=== PATIENT | male | born 1950 | race Caucasian/White ===

== ENCOUNTER → 2016-08-12 | Day surgery (SDC) | payer BC ==
--- NOTE | 2016-08-06 19:33 | HP ---
ADMISSION HISTORY AND PHYSICAL: DATE OF ADMISSION: 08/12/16 CHIEF COMPLAINT: Recurrent right inguinal hernia. HISTORY OF PRESENT ILLNESS: This is a 66-year-old male who underwent open right inguinal hernia repair with Ethicon PHS mesh in 2010. He seemed to do okay for the first few years but in the last year or so, he has had gradual development of a recurrent bulge in the right groin and particularly in the last month or two, has experienced discomfort and pain on an increasing basis. He did have one episode while shopping with pain severe enough to require him to sit down and apply manual pressure. At no time has he had anything to suggest true incarceration or strangulation. He denies any specific GI or changes. He does occasionally note a general "belly ache" that seemed to be associated with presence of the bulge. He was seen in the office by Dr. Cheng on 07/14/16, at which time exam confirmed the presence of a well-healed scar in the right groin as well as reducible right inguinal hernia. On today's exam, I also found a positive cough impulse in the supine position on the left side and this was confirmed by Dr. Cheng as well. The patient understands the indications for surgery, the risks, benefits, and alternatives and would like to proceed as scheduled with laparoscopic repair or right inguinal hernia with mesh. He also understands that Dr. Cheng will explore the left side and if indeed there is hernia present, he will do repair on the left side with mesh as well at that time. PAST MEDICAL HISTORY: 1. BPH. 2. GERD. 3. Gout. PREVIOUS SURGERIES: Include: 1. Right inguinal herniorrhaphy as noted above. 2. Open repair, umbilical hernia, by Dr. Rosen many years ago (he believes that that was done as a primary repair). 3. 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 No reported surgical or anesthesia complications. CURRENT MEDICATIONS: 1. Omeprazole 20 mg once daily. 2. Allopurinol 100 mg once daily. 3. Finasteride 5 mg once daily. 4. Tamsulosin 0.4 mg once daily. 5. Multivitamin once daily. 6. Fiber laxative once daily. 7. Ibuprofen p.r.n. DRUG ALLERGIES: None known. FAMILY HISTORY: Negative for anesthesia problems, bleeding or clotting disorders. SOCIAL HISTORY: The patient is . 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 He denies use of tobacco. He drinks on average 2 to 3 beers per day. He denies any other drug use. REVIEW OF SYSTEMS: General: No recent constitutional symptoms or acute illnesses other than described in the HPI. Cardiovascular: No history of chest pain, palpitations, hypertension or heart murmur. Respiratory: No history of asthma, chronic cough, or shortness of breath. GI: As above. He did have 2 episodes requiring hospitalization for acute pancreatitis in 2015. That was idiopathic and he has had no recurrences. His last colonoscopy was about 15 years ago and he has been recommended to undergo screening, though has had no concerning interval symptoms. : He is followed regularly by Dr. Abdul for BPH. No interval changes in urination. Endocrine: No diabetes or thyroid dysfunction. 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 PHYSICAL EXAMINATION GENERAL: Well-nourished, well-developed male in no acute distress. VITAL SIGNS: Height 72 inches, weight 202 pounds. Other vital signs stable. HEENT: Pupils equal, round, and reactive. EOMs intact. Conjunctivae pink. He does have somewhat of a "crooked smile" presumably related to his prior Patton' s palsy (he does not note any recent changes). NECK: No lymphadenopathy or thyromegaly. There is a well-healed left neck incision. LUNGS: Clear to auscultation. No wheezes. HEART: Regular rate and rhythm. No murmur noted. ABDOMEN: Soft, nontender to palpation. No palpable masses or organomegaly with the exception of right groin where there is a somewhat tender, but reducible mass in the right groin while in the supine position. Left groin is notable for positive cough impulse, which was also confirmed by Dr. Cheng in the standing position, possibly representing a left inguinal hernia as well. EXTREMITIES: No edema. GENITALIA AND RECTAL: Not done today. BACK: No spinous process or CVA tenderness. NEUROLOGICAL: Grossly intact. SKIN: Warm and dry. No suspicious rashes or lesions noted. IMPRESSION: Recurrent right inguinal hernia; possible left inguinal hernia. PLAN: Laparoscopic repair of right inguinal hernia with mesh; possible repair of left inguinal hernia with mesh. SAMIA CALHOUN CC: Dr. Rascon at [facility]* [id number]/[facility] #: [id number] [facility]
[~2016-08-12] MED LIST: Buffered Lidocaine 1% SYR 3ML* 3 ML/SYR SYRINGE INTRADERM ONE; Buffered Lidocaine 1% SYR 3ML* 3 ML/SYR SYRINGE ONE; Bupivacaine 0.5% W/EPI SDV* 30 ML VIAL ONE; Dexamethasone IV* 4 MG/ML 1 ML (4 MG) IV SLOW PU ONE; Dexamethasone IV* 4 MG/ML 1 ML (4 MG) ONE; EPHEDrine (Pressors)* 50 MG/ML VIAL ONE; Famotidine IV* 10 MG/ML 2 ML (20 mg) IV ONE; Famotidine IV* 10 MG/ML 2 ML (20 mg) ONE; Ketorolac INJ* 30 MG/ML 1 ML VIAL ONE; Lidocaine 2% MPF* 2 ML VIAL ONE; Ondansetron INJ* 2 MG/ML VIAL ONE; PROCHLORPERAZINE INJ 5 MG/ML 2 ML VIAL IV PRN; Propofol* 10 MG/ML 20 ML BTL IV PUSH ONE; Rocuronium* 10 MG/ML VIAL ONE; ceFAZolin 2 GM PREMIX (*) 0 GM/0 ML BAG IVPB ONE; ceFAZolin 2 GM PREMIX (*) 2 GM/50 ML BAG IVPB ONE; fentaNYL* 50 MCG/ML 2 ML VIAL (100 MCG VIAL) IV PRN; fentaNYL* 50 MCG/ML 2 ML VIAL (100 MCG VIAL) ONE; oxyCODONE/Acetamin 5/325 MG* TAB ONE
--- NOTE | 2016-08-12 18:26 | PN ---
Progress Note - Progress Note Note: Brief Operative Note: Preop Dx: Recurrent Right Inguinal Hernia; possible Left Inguinal Hernia Postop Dx: same Procedure: Laparoscopic Repair Bilateral Inguinal Hernias w/ mesh Anesthesia: GET Surgeon: Skylar Asst: SAMIA Robles EBL: < 100 ml Fluids: 2500 ml RL Findings: dictated
[2016-08-12] MEDS: oxyCODONE/Acetamin 5/325 MG* TAB PO PRN ×2 (19:09→20:40)
[2016-08-12 21:15] VITALS: BP 168/93
--- NOTE | 2016-08-13 02:52 | OP ---
DATE OF OPERATION: 08/12/16 [facility] DATE OF : 52 SURGEON: Dr. Cheng. TOBACCO STRIPPER HAND: SAMIA Senior ANESTHESIOLOGIST: Dr. Johnson. ANESTHESIA: General endotracheal. PRE-OP DIAGNOSES: Recurrent right inguinal hernia, possible left inguinal hernia. POST-OP DIAGNOSIS: Bilateral inguinal hernias. OPERATIVE PROCEDURES: Laparoscopic preperitoneal repair of recurrent right inguinal hernia and left inguinal hernia, peritoneoscopy. ESTIMATED BLOOD LOSS: Less than 10 mL. IV FLUIDS: Crystalloid. SPECIMEN: None. DRAINS: None. COMPLICATIONS: None. COUNTS: The instruments, needle, and sponge counts were correct. DESCRIPTION OF PROCEDURE: The patient was brought to the operating room and placed on the table supine. Sequential compression devices were placed on both lower extremities. General anesthesia was administered. Lord catheter was placed. The patient was administered appropriate antibiotics. His abdomen was prepped and draped in the usual sterile fashion. Time-out was performed. Local anesthetic was infiltrated into the skin and soft tissue prior to making each incision. A transverse infraumbilical incision was created and subcutaneous tissues were divided. Anterior rectus fascia was identified to the left of midline and incised transversely and then the underlying muscle fibers were retracted laterally. A preperitoneal balloon dissector was positioned down to the level of the pubic symphysis. Under direct visualization , this was insufflated. The balloon dissector was removed and replaced with a 12-mm blunt port. Carbon dioxide was insufflated to a pressure of 12 mmHg. Under direct visualization, two 5 mm trocars were placed in the lower midline. Dissection proceeded first towards the left side. The Thomas's ligament was identified. Inferior epigastric vessels were identified, maintained anteriorly. A direct inguinal hernia was identified. Dissection proceeded laterally and the components of the spermatic cord were identified and preserved. The dissection proceeded laterally to the anterior superior iliac spine. Attention was then turned to the right side of the patient. Starting at the midline, the dissection proceeded laterally. There was noted to be a preperitoneal mesh within the preperitoneal space and this was adherent to the surrounding tissues and was dissected free using combination of blunt and sharp dissection. Epigastric fascias were identified and preserved. A large indirect inguinal hernia sac was identified and fully reduced. There were numerous rents made in the peritoneum, which were subsequently closed with clips. After the mesh was fully reduced, the dissection proceeded laterally to the anterior superior iliac spine. After completing the dissection, repair was performed with the bard 3D Max mesh. This was positioned to cover the direct, indirect, and femoral spaces. The mesh was secured with an anterior tack, also incorporating the redundant sac to the anterior abdominal musculature and a tack to the pubic tubercle. The left-sided mesh was then positioned and this was also tacked to the pubic tubercle on the left side. The space was allowed to be insufflated under direct visualization to assure that the mesh was in proper position. Due to the presence of intraperitoneal carbon dioxide, it was elected to perform peritoneoscopy through the 12 mm port side. After the port was removed , the posterior rectus fascia was incised and the peritoneal cavity was entered and a 12 mm port was placed. Carbon dioxide was insufflated to 12 mmHg. Peritoneoscopy was performed. Right side was inspected and the peritoneum was noted to be intact. Left side was inspected and the peritoneum was noted to be intact. Having assured proper position of the mesh, the carbon dioxide was released and ports were removed. The infraumbilical port site was closed with 0 Polysorb approximating the posterior and anterior rectus fascia separately. Skin incisions were all closed with 4-0 Monocryl in a subcuticular fashion. The Steri-Strips were applied. The patient tolerated the procedure well. He was extubated and transferred to Recovery in a stable condition. CC: Terry Rascon MD* [id number]/[facility] #: [id number] LEN
== END | disposition home or self-care (01) ==
LOC: OR 13:27
PROVIDERS: ATTEND Surgery
DX: K40.20 Bilateral inguinal hernia, without obstruction or gangrene, not specified as recurrent (principal)
CPT/HCPCS: A9270-GY; C1776; C1781; J0690; J1100; J1885; J2405; J2704; J3010

== ENCOUNTER 2018-03-02 14:03 | Inpatient (IN) | payer MEDICARE, OTHER ==
[2018-03-02] MEDS ORDERED: Ondansetron INJ* 2 MG/ML VIAL IV ONE ×2 (14:23→17:29)
[2018-03-02] MEDS ORDERED: Morphine VIAL* 4 MG/ML VIAL (1 ml vial) IV ONE ×2 (14:23→17:29)
[2018-03-02] MEDS ORDERED: Morphine INJ* 2 MG/ML 1 ML SYRINGE (TWO MG - NEW SYRINGE VERSION) ONE (14:57)
[2018-03-02 15:16] LABS: EGFR Non-African American 73.9 (>60)
[2018-03-02] MEDS: Morphine INJ* 2 MG/ML 1 ML SYRINGE (TWO MG - NEW SYRINGE VERSION) IV ONE ×2 (15:21→18:36)
[2018-03-02] MEDS ORDERED: NS 0.9% 1000 ML* 1,000 ML IV ONE ×2 (15:21→16:07)
[2018-03-02 15:36] LABS: Urine Appearance Clear; Urine Blood 1+ (Negative); Urine Color Yellow; Urine Ketones Negative (Negative); Urine Protein Negative (Negative); Urine Red Blood Cell 2+(6-10/hpf) (Absent); Urine Specific Gravity 1.012 (1.010-1.030); Urine Urobilinogen Negative (Negative); Urine White Blood Cell Trace(0-5/hpf) (Absent)
--- NOTE | 2018-03-02 15:45 | ED ---
Abdominal Pain/Male - HPI Summary HPI Summary: Patient is a 67-year-old male with history of alcohol-induced pancreatitis 3 years ago presenting to the ED with worsening mid upper abdominal pain over the past several days with worsening symptoms. He endorses worsening pain after eating, better with rest. He continues to drink several beers per night but has decreased the amount over the past several days and endorses 2 beers last evening. 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 Also endorses back pain which is mid to lower back and began approximately one week ago. He states similar episode happened last time he was diagnosed with pancreatitis with the back pain prior to the abdominal pain. Denies any other abdominal pain , urinary symptoms, back pain, shortness of breath, chest pain. Denies any fevers, sweats, chills. He was being treated by doctor Ritika, but states with further testing they found no evidence of any other abnormalities other than an elevated lipase and amylase with one episode acute pancreatitis. He states he has been otherwise healthy, however has an enlarged prostate. - History of Current Complaint Chief Complaint: EDAbdPain Stated Complaint: ABD PAIN Time Seen by Provider: 03/02/18 14:18 Hx Obtained From: Patient Onset/Duration: Sudden Onset Timing: Constant, Lasting Days Severity Initially: Moderate Severity Currently: Moderate Pain Intensity: 7 Pain Scale Used: 0-10 Numeric Location: Epigastric Radiates: Yes Radiates to: Back Aggravating Factor(s): Food Alleviating Factor(s): Nothing Associated Signs And Symptoms: Positive: Back Pain, Nausea, Vomiting. Negative : Fever, Cough, Constipation, Urinary Symptoms, Decreased Appetite - Risk Factors Testicular Torsion: Negative Cardiac Risk Factors: Negative - Allergies/Home Medications Allergies/Adverse Reactions: Allergies Allergy/AdvReac Type Severity Reaction Status Date / Time 1.5T MRIs ONLY Allergy FOREIGN Uncoded 08/12/16 13:49 METAL IN Lt CHEEK Home Medications: Home Medications Allopurinol TAB* [Zyloprim 100 MG TAB*] 100 mg PO QPM 03/02/18 [History Confirmed 03/02/18] Calcium Polycarbophil TAB* [Fibercon TAB*] 625 mg PO DAILY 03/02/18 [History Confirmed 03/02/18] Finasteride TAB* [Proscar TAB*] 5 mg PO DAILY 03/02/18 [History Confirmed ] Ibuprofen TAB* [Motrin TAB* 400 MG] 400 mg PO Q6H PRN 03/02/18 [History Confirmed 03/02/18] Multivitamins/Minerals TAB* [Theragran/minerals TAB*] 1 tab PO DAILY 03/02/18 [ History Confirmed 03/02/18] Omeprazole CAP* [Prilosec CAP* 20 MG] 20 mg PO DAILY 03/02/18 [History Confirmed 03/02/18] PMH/Surg Hx/FS Hx/Imm Hx Previously Healthy: Yes Endocrine/Hematology History: Denies: Hx Diabetes, Hx Thyroid Disease Cardiovascular History: Reports: Hx Hypercholesterolemia, Hx Syncope Denies: Hx Hypertension, Hx Pacemaker/ICD Respiratory History: Denies: Hx Asthma, Hx Chronic Obstructive Pulmonary Disease (COPD) GI History: Reports: Hx Diverticulosis - Md diagnosed via [place], Hx Gastroesophageal Reflux Disease - ON MEDICATION FOR, Other GI Disorders - 2 YRS AGO- PACREATITIS Denies: Hx Ulcer History: Reports: Hx Benign Prostatic Hyperplasia, Other Problems/ Disorders - slow stream Musculoskeletal History: Reports: Hx Arthritis - HANDS, Hx Back Problems, Hx Gout - HX not current, Hx Orthopedic Injury - severed right tricep, surgically reattached Sensory History: Reports: Hx Contacts or Glasses - GLASSES, Hx Vision Problem - wears bifocals, Hx Hearing Problem - [place] Left ear Denies: Hx Hearing Aid Opthamlomology History: Reports: Hx Contacts or Glasses - GLASSES, Hx Vision Problem - wears bifocals Neurological History: Denies: Hx Dementia, Hx Developmental Delay, Hx Headaches, Hx Migraine, Hx Nerve Disease, Hx Seizures, Hx Spinal Cord Injury, Hx Transient Ischemic Attacks (TIA), Other Neuro Impairments/Disorders Psychiatric History: Denies: Hx Panic Disorder - Surgical History Surgery Procedure, Year, and Place: BENIGN SALIVARY TUMOR UNDER LEFT EAR, right ELBOW - TRICEP TENDON TEAR,2 HERNIAS,TONSILECTOMY,HERNIA REPAIR SMALL CHILD Hx Anesthesia Reactions: No - Immunization History Hx Pertussis Vaccination: No Immunizations Up to Date: Unable to Obtain/Confirm Infectious Disease History: No Infectious Disease History: Denies: Hx Clostridium Difficile, Hx Hepatitis, Hx Human Immunodeficiency Virus (HIV), Hx of Known/Suspected MRSA, Hx Shingles, Hx Tuberculosis, Hx Known/ Suspected VRE, Hx Known/Suspected VRSA, History Other Infectious Disease, Traveled Outside the [place] in Last 30 Days - Social History Occupation: Unemployed Lives: With Family Alcohol Use: Daily Alcohol Amount: 1 or 2 beer day Hx Substance Use: No Substance Use Type: Reports: None Substance Use Comment - Amount & Last Used: within the last week or two Hx Tobacco Use: No Smoking Status (MU): Never Smoked Tobacco Review of Systems Constitutional: Negative Negative: Fever, Chills, Fatigue, Skin Diaphoresis Negative: Palpitations, Chest Pain Negative: Shortness Of Breath, Cough Positive: Abdominal Pain, Vomiting, Nausea. Negative: Diarrhea Genitourinary: Negative Positive: no symptoms reported, see HPI Negative: Arthralgia, Myalgia Skin: Negative Neurological: Negative All Other Systems Reviewed And Are Negative: Yes Physical Exam Triage Information Reviewed: Yes Vital Signs On Initial Exam: Initial Vitals Temp Pulse Resp BP Pulse Ox 97.8 F 68 18 80/47 98 03/02/18 14:05 03/02/18 14:05 03/02/18 14:05 03/02/18 14:05 03/02/18 14:05 Vital Signs Reviewed: Yes Appearance: Positive: Well-Appearing, Well-Nourished Skin: Positive: Warm, Skin Color Reflects Adequate Perfusion Head/Face: Positive: Normal Head/Face Inspection Eyes: Positive: EOMI, DORIS, Conjunctiva Clear Neck: Positive: Supple, No Lymphadenopathy Respiratory/Lung Sounds: Positive: Clear to Auscultation, Breath Sounds Present Cardiovascular: Positive: RRR, Pulses are Symmetrical in both Upper and Lower Extremities Abdomen Description: Positive: Other: - tenderness to the mid epigastric region and mid back Musculoskeletal: Positive: Normal, Strength/ROM Intact Neurological: Positive: Normal, Sensory/Motor Intact, Alert, Oriented to Person Place, Time, Speech Normal Psychiatric: Positive: Normal, Affect/Mood Appropriate AVPU Assessment: Alert Diagnostics - Vital Signs Vital Signs Temp Pulse Resp BP Pulse Ox 03/02/18 15:21 14 03/02/18 14:47 67 95 03/02/18 14:44 124/69 03/02/18 14:05 97.8 F 68 18 80/47 98 - Laboratory Lab Results: Lab Results 03/02/18 03/02/18 Range/Units 14:40 15:16 Sodium 137 (135-145) mmol/L Potassium 3.5 (3.5-5.0) mmol/L Chloride 102 (101-111) mmol/L Carbon Dioxide 26 (22-32) mmol/L Anion Gap 9 (2-11) mmol/L BUN 16 (6-24) mg/dL Creatinine 1.01 (0.67-1.17) mg/dL Est GFR ( Amer) 89.4 (>60) Est GFR (Non-Af Amer) 73.9 (>60) BUN/Creatinine Ratio 15.8 (8-20) Glucose 117 H (70-100) mg/dL Calcium 9.4 (8.6-10.3) mg/dL Total Bilirubin 1.10 H (0.2-1.0) mg/dL AST 51 H (13-39) U/L ALT 30 (7-52) U/L Alkaline Phosphatase 63 (34-104) U/L C-Reactive Protein 1.23 (<8.01) mg/L Total Protein 7.1 (6.4-8.9) g/dL Albumin 4.3 (3.2-5.2) g/dL Globulin 2.8 (2-4) g/dL Albumin/Globulin Ratio 1.5 (1-3) Amylase 1702 H (29-103) U/L Lipase Pending Urine Color Yellow Urine Appearance Clear Urine pH 6.0 (5-9) Ur Specific [place] 1.012 (1.010-1.030) Urine Protein Negative (Negative) Urine Ketones Negative (Negative) Urine Blood 1+ A (Negative) Urine Nitrate Negative (Negative) Urine Bilirubin Negative (Negative) Urine Urobilinogen Negative (Negative) Ur Leukocyte Esterase Negative (Negative) Urine WBC (Auto) Trace(0-5/hpf) (Absent) Urine RBC (Auto) 2+(6-10/hpf) A (Absent) Urine Bacteria Absent (Absent) Urine Glucose Negative (Negative) Result Diagrams: 03/02/18 14:40 03/02/18 14:40 Lab Statement: Any lab studies that have been ordered have been reviewed, and results considered in the medical decision making process. Re-Evaluation - Re-Evaluation First Eval Change: Improved - improved with NS, morphine and zofran Abdominal Pain Fem Course/Dx - Course Course Of Treatment: During the course of treatment, the patient is evaluated for acute pancreatitis versus other etiology. On physical exam there is diffuse tenderness to the upper abdomen with pinpoint tenderness to the upper mid gastric region. This pain worsens with palpation and oral intake, better with rest. Has not been taking any medication for his symptoms, however has been continuing to drink alcohol with several beers per evening. He endorses lessening his alcohol intake and states he had 2 beers last evening. Denies any fevers, sweats, chills. Vital signs are stable on arrival, however he has a soft BP 80/47 which increased to 124/69. Amylase 1702. Lipas 8700+. Patient is given morphine and Zofran for pain and nausea. No evidence of Sharon's or Rohca Brown's sign. Aggressively hydrated with 2L NS. He is given 8 mg morphine and 8mg Zofran while in the ED. Discussed case with Dr. Jones, hospitalist who recommends CT abdomen/pelvis to assess for any pancreatic necrosis. CT abdomen and pelvis ordered and patient is currently pending admission. - Diagnoses Differential Diagnosis/HQI/PQRI: Pancreatitis, Peptic Ulcer Disease Provider Diagnoses: Pancreatitis Discharge - Sign-Out/Discharge Documenting (check all that apply): Patient Departure - Discharge Plan Condition: Stable Disposition: ADMITTED TO [facility] Referrals: Terry Rascon MD [Primary Care Provider] - - Billing Disposition and Condition Condition: STABLE Disposition: Admitted to [facility]
[2018-03-02 15:55] LABS: ABS Basophils 0 10^3/ul (0-0.2); ABS Eosinophils 0 10^3/ul (0-0.6); ABS Lymphocytes 0.8 10^3/ul (1.0-4.8); ABS Monocytes 0.2 10^3/ul (0-0.8); ABS Neutrophils 8.6 10^3/ul (1.5-7.7); ABS Nucleated RBC 0 10^3/ul; Eosinophil % 0.4 % (0-6); Hematocrit 48 % (42-52); Hemoglobin 16.5 g/dl (14.0-18.0); Lymphocyte % 8.2 % (25-47); Mean Corpuscular HGB Conc 35 g/dl (31-36); Mean Corpuscular Hemoglobin 34 pg (27-31); Mean Corpuscular Volume 100 fL (80-94); Mean Platelet Volume 8.2 um3 (7.4-10.4); Nucleated Red Blood Cells % 0; Platelet Count 202 10^3/ul (150-450); Red Blood Count 4.81 10^6/ul (4.00-5.40); Red Cell Distribution Width 13 % (10.5-15); White Blood Count 9.6 10^3/ul (3.5-10.8)
[2018-03-02] MEDS ORDERED: Iohexol 300* (CONTRAST) 10 ML SDV IV ONE (17:55)
[2018-03-02] MEDS ORDERED: Ondansetron INJ* 2 MG/ML VIAL IV PRN (18:14)
[2018-03-02] MEDS ORDERED: Morphine INJ* 10 MG/ML 1 ML CARPUJECT IV PRN (18:14)
--- NOTE | 2018-03-02 19:02 | RAD ---
CLINICAL HISTORY: Abdominal pain. COMPARISON: Most recent CT of the abdomen and pelvis is dated August 24, 2014. TECHNIQUE: Contrast enhanced CT examination of the abdomen and pelvis from the lung bases through the initial tuberosities. The patient received 117 mL Omnipaque 300 intravenously prior to imaging.The patient received oral contrast as well prior to imaging. FINDINGS: Unless otherwise specified comparisons below reference the August 24, 2014 CT examination. VISUALIZED LUNG BASES: There are similar hypoventilatory changes of the be dependent bilateral lung bases unchanged significantly from the previous CT examination. ABDOMEN AND PELVIS: There is infiltration of the mesenteric fat surrounding the pancreas. Fluid is seen tracking inferiorly from the head of the pancreas and surrounding the second portion of the duodenum, along the right paracolic gutter. There is no large drainable fluid collection surrounding the pancreas. The liver, spleen and adrenal glands are grossly normal in appearance. The gallbladder is normal. The kidneys are normal in appearance without focal mass, calcification or signs of hydronephrosis. The small and large bowel are not distended. The patient's normal appendix is identified in the right lower quadrant. There is no gross retroperitoneal or mesenteric lymphadenopathy. The prostate measures 4.4 x 5.9 cm in the axial plane. In the coronal plane the prostate measures 5.7 cm and is seen extending into the base of the urinary bladder. The urinary bladder measures 10.6 x 13.7 x 11.6 cm yielding an approximate volume of 1364 mL. The abdominal aorta and iliac arteries are normal in course and diameter. Degenerative changes include multilevel loss of intervertebral disc height involving the lower thoracic and lumbar spine.There are no sinister bone lesions. IMPRESSION: 1. Similar to the most recent August 24, 2014 CT of the abdomen and pelvis, CT findings could be consistent with pancreatitis. 2. Prostatomegaly with nodular distention of the prostate gland into the base of the urinary bladder. Urinary bladder is enlarged with a volume measurement of approximately 1364 mL. Please correlate to signs or symptoms of urinary outlet obstruction.
[2018-03-02] MEDS: NS 0.9% 1000 ML* 1,000 ML IV SCH (20:09)
[2018-03-02] MEDS ORDERED: Acetaminophen TAB* 325 MG PO PRN (20:14)
[2018-03-02] MEDS: Heparin VIAL(*) 5000 UNITS/ML VIAL (FIVE THOUSAND) SUBCUT SCH (21:38)
[2018-03-02] MEDS ORDERED: HYDROmorphone INJ* 0.5 MG/0.5 ML SYRINGE IV SLOW PU PRN (21:44)
[2018-03-02] MEDS ORDERED: oxyCODONE/Acetamin 5/325 MG* TAB PO PRN (21:44)
--- NOTE | 2018-03-02 21:52 | HP ---
CC: Dr. Rascon; Dr. Yost * HISTORY AND PHYSICAL: DATE OF ADMISSION: 03/02/18 TIME OF ADMISSION: 06:00 p.m. CHIEF COMPLAINT: Abdominal pain. HISTORY OF PRESENT ILLNESS: This is a 67-year-old man with history of pancreatitis, who presents with sudden onset of abdominal pain after lunch today. 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 He did not eat breakfast, but that is usual for him. He had his usual lunch and afterwards had mid abdominal pain associated with vomiting so he came to the emergency department. He vomited 3 times again in the ED and in the ED he was found to have a lipase level of 8768. This is the third time he has had acute pancreatitis and no clear explanation has been found. He is a light drinker. He drinks 2 beers per day. He has never had gallstones and he is not on any medications associated with pancreatitis. He has been followed by Dr. Yost as an outpatient and had an MRCP, which was unremarkable. PAST MEDICAL HISTORY: Acute pancreatitis, BPH, gout, GERD, and Patton's palsy x3. PAST SURGICAL HISTORY: He has had inguinal hernia surgery repair x3, a triceps tendon repair and a parotid gland removal. FAMILY HISTORY: His mom had pancreatic cancer and his aunt has recurrent pancreatitis. SOCIAL HISTORY: He has never been a smoker. 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 His emergency contact is his , Magda. Her phone number is [phone]. PHYSICAL EXAMINATION GENERAL: Alert, well-appearing man, in no distress. VITAL SIGNS: Temperature 97.8, heart rate 68, respiratory rate 18, pulse ox 98 % on room air, blood pressure 124/69. HEENT: Pupils are equal, round, and reactive to light. No nystagmus. Oral mucosa is moist. His left nasolabial fold is slightly decreased compared to the right. Tongue is midline. NECK: No JVP. No cervical adenopathy. A left neck scar is noted. LUNGS: Clear bilaterally. CHEST: Regular rate and rhythm. No murmurs. PMI nondisplaced. ABDOMEN: Soft. Liver is nonpalpable. Abdomen is tender to light palpation in the epigastric area with no guarding or rebound. EXTREMITIES: No rashes. No ulcers. No point tenderness on his back. No tenderness over the spinous processes. LABORATORY DATA: Sodium 137, potassium 3.5, chloride 102, creatinine 1.01, glucose 117, lactic acid 0.6. Lipase 8768, amylase 1702. White blood cells 9.6 , hemoglobin 16.5, platelets 202. ASSESSMENT AND PLAN: This is a 67-year-old man with history of recurrent pancreatitis of unclear etiology, who presents today with abdominal pain and was found to have elevated amylase and lipase. 1. Acute pancreatitis. He has no history of gallstones. He is not on any thiazide or statin or other medication that can contribute to pancreatitis. He takes no [id number] medications. He does drink 2 beers per day. He has been worked up for autoimmune pancreatitis in 2015, with an IgG panel, rheumatoid factor and RHIANNA, which were all unremarkable. A serum alcohol level is pending. For now, I will treat him symptomatically with IV morphine and IV Zofran as needed. He will be n.p.o. until he is able to tolerate p.o. and I will give him gentle IV fluids. I am consulting Dr. Yost since Mr. To is known to him as an outpatient and the emergency department has ordered a CT scan , which is pending at this time. He has had no diarrhea to suggest pancreatic insufficiency. 2. Benign prostatic hypertrophy. Hold finasteride at home, tamsulosin while he is n.p.o. 3. Gout. Hold allopurinol while he is n.p.o. 4. Gastroesophageal reflux disease. Hold omeprazole while he is n.p.o. 5. History of Patton's palsy x3, noted. Some residual left-sided facial weakness is noted. 6. DVT prophylaxis: Heparin subcutaneously. 7. Disposition: Admit to the hospitalist service to [address] [place] [address]. [id number]/[facility] #: [id number] LEN
[2018-03-03] MEDS: Heparin VIAL(*) 5000 UNITS/ML VIAL (FIVE THOUSAND) SUBCUT SCH ×3 (05:55→22:49)
[2018-03-03] MEDS: NS 0.9% 1000 ML* 1,000 ML IV SCH ×2 (06:19→18:10)
[2018-03-03 07:48] LABS: ABS Basophils 0 10^3/ul (0-0.2); ABS Eosinophils 0 10^3/ul (0-0.6); ABS Lymphocytes 0.7 10^3/ul (1.0-4.8); ABS Monocytes 0.4 10^3/ul (0-0.8); ABS Nucleated RBC 0 10^3/ul; Eosinophil % 0.5 % (0-6); Hematocrit 44 % (42-52); Hemoglobin 14.8 g/dl (14.0-18.0); Lymphocyte % 8.7 % (25-47); Mean Corpuscular HGB Conc 34 g/dl (31-36); Mean Corpuscular Hemoglobin 34 pg (27-31); Mean Corpuscular Volume 100 fL (80-94); Mean Platelet Volume 8.4 um3 (7.4-10.4); Nucleated Red Blood Cells % 0.1; Platelet Count 176 10^3/ul (150-450); Red Blood Count 4.36 10^6/ul (4.00-5.40); Red Cell Distribution Width 13 % (10.5-15); White Blood Count 8.2 10^3/ul (3.5-10.8)
[2018-03-03 07:57] LABS: INR 0.94 (0.77-1.02)
[2018-03-03 08:15] LABS: EGFR Non-African American 84.4 (>60)
--- NOTE | 2018-03-03 10:30 | PN ---
Subjective Date of Service: 03/03/18 Interval History: Pain is much better, "minimal". Resolved nausea. Hungry. Drinks 4 beers on Fridays, Saturdays, 2 other nights. Had consult with Dr. Yost late January 2018 but not yet scheduled EGD/ colonoscopy. Last colonoscopy many years ago. no chest pain, shortness of breath, BRANNON, chills. Tmax 99.9 7pm last night. improved. Objective Active Medications: Acetaminophen (Tylenol Tab*) 650 mg PO Q6H PRN PRN Reason: pain/fever Last Admin: 03/02/18 21:39 Dose: 650 mg Heparin Sodium (Porcine) (Heparin Vial(*)) 5,000 units SUBCUT Q8HR [facility] Last Admin: 03/03/18 05:55 Dose: 5,000 units Hydromorphone HCl (Dilaudid Inj*) 0.5 mg IV SLOW PU Q2H PRN PRN Reason: PAIN Last Admin: 03/02/18 21:54 Dose: 0.5 mg Sodium Chloride (Ns 0.9% 1000 Ml*) 1,000 mls @ 100 mls/hr IV PER RATE [facility] Last Admin: 03/03/18 06:19 Dose: 100 mls/hr Ondansetron HCl (Zofran Inj*) 4 mg IV Q4H PRN PRN Reason: NAUSEA Oxycodone/Acetaminophen (Percocet 5/325 Tab*) 2 tab PO Q6H PRN PRN Reason: PAIN Vital Signs - 8 hr 03/03/18 03/03/18 03/03/18 03:32 07:44 08:00 Temperature 97.8 F 98.4 F Pulse Rate 57 61 Respiratory 16 18 16 Rate Blood Pressure 109/57 115/61 (mmHg) O2 Sat by Pulse 96 96 Oximetry Oxygen Devices in Use Now: None Appearance: NAD Eyes: No Scleral Icterus, PERRLA Ears/Nose/Mouth/Throat: NL Teeth, Lips, Gums, Mucous Membranes Moist Neck: NL Appearance and Movements; NL JVP Respiratory: Symmetrical Chest Expansion and Respiratory Effort, Clear to Auscultation Cardiovascular: NL Sounds; No Murmurs; No JVD, RRR Abdominal: - - minimal epigastric tenderness. soft, nondistended, no rebound, no guarding, no Sunshine's sign. Extremities: No Edema Skin: No Rash or Ulcers Neurological: Alert and Oriented x 3, NL Sensation, NL Muscle Strength and Tone Result Diagrams: 03/03/18 07:22 03/03/18 07:22 Additional Lab and Data: Laboratory Results - last 24 hr 03/02/18 03/02/18 03/02/18 14:40 14:40 14:40 WBC 9.6 RBC 4.81 Hgb 16.5 Hct 48 MCV 100 H MCH 34 H MCHC 35 RDW 13 Plt Count 202 MPV 8.2 Neut % (Auto) 89.5 H Lymph % (Auto) 8.2 L Teller % (Auto) 1.6 Eos % (Auto) 0.4 Baso % (Auto) 0.3 Absolute Neuts (auto) 8.6 H Absolute Lymphs (auto) 0.8 L Absolute Monos (auto) 0.2 Absolute Eos (auto) 0 Absolute Basos (auto) 0 Absolute Nucleated RBC 0 Nucleated RBC % 0 INR (Anticoag Therapy) Sodium 137 Potassium 3.5 Chloride 102 Carbon Dioxide 26 Anion Gap 9 BUN 16 Creatinine 1.01 Est GFR ( Amer) 89.4 Est GFR (Non-Af Amer) 73.9 BUN/Creatinine Ratio 15.8 Glucose 117 H Lactic Acid 0.6 Calcium 9.4 Total Bilirubin 1.10 H AST 51 H ALT 30 Alkaline Phosphatase 63 C-Reactive Protein 1.23 Total Protein 7.1 Albumin 4.3 Globulin 2.8 Albumin/Globulin Ratio 1.5 Amylase 1702 H Lipase 8768 H Urine Color Urine Appearance Urine pH Ur Specific [place] Urine Protein Urine Ketones Urine Blood Urine Nitrate Urine Bilirubin Urine Urobilinogen Ur Leukocyte Esterase Urine WBC (Auto) Urine RBC (Auto) Urine Bacteria Urine Glucose Serum Alcohol < 10 03/02/18 03/03/18 03/03/18 15:16 07:22 07:22 WBC 8.2 RBC 4.36 Hgb 14.8 Hct 44 MCV 100 H MCH 34 H MCHC 34 RDW 13 Plt Count 176 MPV 8.4 Neut % (Auto) 85.0 H Lymph % (Auto) 8.7 L Teller % (Auto) 5.4 Eos % (Auto) 0.5 Baso % (Auto) 0.4 Absolute Neuts (auto) 7.0 Absolute Lymphs (auto) 0.7 L Absolute Monos (auto) 0.4 Absolute Eos (auto) 0 Absolute Basos (auto) 0 Absolute Nucleated RBC 0 Nucleated RBC % 0.1 INR (Anticoag Therapy) Sodium 136 Potassium 3.8 Chloride 106 Carbon Dioxide 25 Anion Gap 5 BUN 16 Creatinine 0.90 Est GFR ( Amer) 102.2 Est GFR (Non-Af Amer) 84.4 BUN/Creatinine Ratio 17.8 Glucose 109 H Lactic Acid Calcium 8.4 L Total Bilirubin 1.00 AST 20 ALT 21 Alkaline Phosphatase 56 C-Reactive Protein Total Protein 6.1 L Albumin 3.6 Globulin 2.5 Albumin/Globulin Ratio 1.4 Amylase Lipase Urine Color Yellow Urine Appearance Clear Urine pH 6.0 Ur Specific [place] 1.012 Urine Protein Negative Urine Ketones Negative Urine Blood 1+ A Urine Nitrate Negative Urine Bilirubin Negative Urine Urobilinogen Negative Ur Leukocyte Esterase Negative Urine WBC (Auto) Trace(0-5/hpf) Urine RBC (Auto) 2+(6-10/hpf) A Urine Bacteria Absent Urine Glucose Negative Serum Alcohol 03/03/18 07:22 WBC RBC Hgb Hct MCV MCH MCHC RDW Plt Count MPV Neut % (Auto) Lymph % (Auto) Teller % (Auto) Eos % (Auto) Baso % (Auto) Absolute Neuts (auto) Absolute Lymphs (auto) Absolute Monos (auto) Absolute Eos (auto) Absolute Basos (auto) Absolute Nucleated RBC Nucleated RBC % INR (Anticoag Therapy) 0.94 Sodium Potassium Chloride Carbon Dioxide Anion Gap BUN Creatinine Est GFR ( Amer) Est GFR (Non-Af Amer) BUN/Creatinine Ratio Glucose Lactic Acid Calcium Total Bilirubin AST ALT Alkaline Phosphatase C-Reactive Protein Total Protein Albumin Globulin Albumin/Globulin Ratio Amylase Lipase Urine Color Urine Appearance Urine pH Ur Specific [place] Urine Protein Urine Ketones Urine Blood Urine Nitrate Urine Bilirubin Urine Urobilinogen Ur Leukocyte Esterase Urine WBC (Auto) Urine RBC (Auto) Urine Bacteria Urine Glucose Serum Alcohol Assess/Plan/Problems-Billing Assessment: 67 yo male PMH BPH, gout, GERD, Patton's palsy, pancreatitis x 2 in 2014 p/w abdominal pain, nausea, lipase 8768 and e/o acute pancreatitis on CT abd/ pelvis. Likely EtOH. - Patient Problems (1) Pancreatitis Current Visit: No Status: Acute Priority: High Onset Date: 08/24/14 Code (s): K85.9 - ACUTE PANCREATITIS, UNSPECIFIED * DO NOT USE * SNOMED Code(s): 59819806 Comment: Repeat Lipase in AM f/u Dr. Yost recs encourage EtOH cessation last RHIANNA in our system was in 2011 before any of his pancreatitis episodes. Will repeat. no meds likely contributing. advance diet as tolerated given near resolution of pain. Clear Liquids now. (2) Alcohol abuse Current Visit: No Status: Chronic Code(s): F10.10 - ALCOHOL ABUSE, UNCOMPLICATED SNOMED Code(s): 36414473 Comment: needs to abstain from EtOH given now 3rd episode of pancreatitis. (3) BPH (benign prostatic hypertrophy) Current Visit: No Status: Chronic Code(s): N40.0 - BENIGN PROSTATIC HYPERPLASIA WITHOUT LOWER URINRY TRACT SYMP SNOMED Code(s): 738491351 Comment: restart home proscar and flomax. (4) GERD (gastroesophageal reflux disease) Current Visit: No Status: Chronic Code(s): K21.9 - GASTRO-ESOPHAGEAL REFLUX DISEASE WITHOUT ESOPHAGITIS SNOMED Code(s): 657883888 Comment: holding home prilsec. <1% association with pancreatitis. (5) Gout Current Visit: No Status: Chronic Code(s): M10.9 - GOUT, UNSPECIFIED SNOMED Code(s): 46089952 Comment: holinding home allopurinol stable. Status and Disposition: medicine inpatient
[2018-03-03] MEDS: Finasteride TAB* 5 MG PO SCH (12:13)
[2018-03-03] MEDS ORDERED: Tamsulosin CAP* 0.4 MG PO SCH (18:00)
--- NOTE | 2018-03-03 22:53 | CONS ---
GASTROENTEROLOGY CONSULT: DATE: 08/20 REFERRING PHYSICIANS: Alissa Mckee DO; Terry Rascon MD REASON FOR CONSULTATION: Third episode of pancreatitis without obvious cause. HISTORY: This 67-year-old man around 11 a.m. yesterday developed epigastric pain, which built up over a few hours reminiscent of his prior pancreatitis bouts and he presented to the emergency room and had temp of 97.8, and blood pressure 80/47. His white count was 9.6. Bilirubin 1.1, ALT 30, and lipase 8768. He does have 2 beers most nights and on an occasional weekend day 4. The night before this happened, he had had a strip steak and a box of macaroni cheese and he insists two IPA's. CT abdomen and pelvis showed pancreatitis which was fairly mild in extent without any fluid collection. The liver and gallbladder appeared normal. Since admission, he has improved and actually today has been up and walking around. He has passed flatus. PAST MEDICAL HISTORY: 1. Pancreatitis episode in August and December 2014 followed by negative MRCPs in October and March 2015. He also had a gallbladder ultrasound twice that spring, triglycerides, IgG4 level, etc., and no answer was forthcoming. 2. BPH. 3. Gout - on allopurinol. 4. GERD, on omeprazole. 5. Status post inguinal hernia surgery x3. 6. Umbilical hernia surgery. FAMILY HISTORY: His mother of pancreatic cancer (smoker) and maternal aunt has had episodes of pancreatitis. She is now 93 and the age of first pancreatitis is unknown. He thinks his maternal grandmother had pancreatitis from gallbladder disease. 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 REVIEW OF SYSTEMS: No history of cardiac disease, palpitations, syncope, seizure, CVA, TIA, hepatitis, jaundice, gross hematuria, psoriasis, or chronic neurologic problem. EXAM: He is a tall, ruggedly built older man, initially encountered walking in the [place]blero with his IV pole. His skin is normal. He has no icterus. He has no adenopathy. His lungs are clear. Heart sounds are regular. The abdomen is symmetric with an umbilical trocar scar. Bowel sounds are normal and palpation is unremarkable. Rectal: Deferred. Extremities show no edema. LABORATORY DATA: Admission hemoglobin 16.5, hematocrit 48, MCV 100, platelets 202,000. IMPRESSION: Pancreatitis, third episode with no obvious precipitant, although the meal preceding this bout was moderately high in fat. It was not anything particularly heavy compared to his usual diet. He does say that his second bout of pancreatitis ended very abruptly and was quite mild and the only thing that that brings to mind is the possibility of passing a small gallstone, which certainly can escape detection during an initial workup. I will order another gallbladder and if negative optional steps would be EUS or a trial of ursodiol, but the frequency of these events would make it difficult to monitor response to any medication. [id number]/[facility] #: [id number] LEN
[2018-03-04] MEDS: NS 0.9% 1000 ML* 1,000 ML IV SCH (06:05)
[2018-03-04] MEDS: Heparin VIAL(*) 5000 UNITS/ML VIAL (FIVE THOUSAND) SUBCUT SCH ×2 (06:10→14:14)
[2018-03-04 07:28] LABS: ABS Basophils 0 10^3/ul (0-0.2); ABS Eosinophils 0.1 10^3/ul (0-0.6); ABS Lymphocytes 0.9 10^3/ul (1.0-4.8); ABS Monocytes 0.4 10^3/ul (0-0.8); ABS Neutrophils 3.3 10^3/ul (1.5-7.7); ABS Nucleated RBC 0 10^3/ul; Eosinophil % 2.6 % (0-6); Hematocrit 39 % (42-52); Hemoglobin 13.6 g/dl (14.0-18.0); Lymphocyte % 19.4 % (25-47); Mean Corpuscular HGB Conc 35 g/dl (31-36); Mean Corpuscular Hemoglobin 34 pg (27-31); Mean Corpuscular Volume 99 fL (80-94); Mean Platelet Volume 8.3 um3 (7.4-10.4); Nucleated Red Blood Cells % 0; Platelet Count 158 10^3/ul (150-450); Red Blood Count 3.97 10^6/ul (4.00-5.40); Red Cell Distribution Width 13 % (10.5-15); White Blood Count 4.8 10^3/ul (3.5-10.8)
[2018-03-04 07:49] LABS: EGFR Non-African American 87.8 (>60)
--- NOTE | 2018-03-04 08:22 | RAD ---
HISTORY: Right upper quadrant pain. COMPARISONS: Similar examination dated December 09, 2014 TECHNIQUE: Multiple transverse and longitudinal ultrasound images were obtained of the right upper quadrant. FINDINGS: LIVER: The liver exhibits homogenously increased echogenicity. The liver is normal in size measuring 16.3 cm in greatest cephalocaudal dimension. Normal hepatic and portal venous blood flow is duplicated with color flow imaging. There is no gross intrahepatic biliary duct dilatation. GALLBLADDER AND EXTRAHEPATIC BILIARY DUCT: The gallbladder is normal in appearance without intraluminal stones or other soft tissue masses. There is no pericholecystic fluid or gallbladder wall thickening. The common bile duct measures a maximum diameter of 5 mm. PANCREAS: The portions of the pancreas not obscured by bowel gas are normal in appearance. RIGHT KIDNEY: The right kidney is normal in size, morphology and echogenicity. AORTA AND IVC: The visualized portions are normal in appearance and not pathologically dilated. IMPRESSION: 1. NORMAL GALLBLADDER. 2. HOMOGENOUSLY INCREASED ECHOGENICITY OF THE LIVER CAN BE SEEN IN THE SETTING OF HEPATIC STEATOSIS.
--- NOTE | 2018-03-04 08:49 | PN ---
Subjective Date of Service: 03/04/18 Interval History: No pain, nausea. Hungry. Objective Active Medications: Acetaminophen (Tylenol Tab*) 650 mg PO Q6H PRN PRN Reason: pain/fever Last Admin: 03/02/18 21:39 Dose: 650 mg Finasteride (Proscar Tab*) 5 mg PO DAILY [facility] Last Admin: 03/03/18 12:13 Dose: 5 mg Heparin Sodium (Porcine) (Heparin Vial(*)) 5,000 units SUBCUT Q8HR [facility] Last Admin: 03/04/18 06:10 Dose: 5,000 units Hydromorphone HCl (Dilaudid Inj*) 0.5 mg IV SLOW PU Q2H PRN PRN Reason: PAIN Last Admin: 03/02/18 21:54 Dose: 0.5 mg Ondansetron HCl (Zofran Inj*) 4 mg IV Q4H PRN PRN Reason: NAUSEA Oxycodone/Acetaminophen (Percocet 5/325 Tab*) 2 tab PO Q6H PRN PRN Reason: PAIN Tamsulosin HCl (Flomax Cap*) 0.4 mg PO QPM [facility] Last Admin: 03/03/18 17:25 Dose: 0.4 mg Vital Signs - 8 hr 03/04/18 03/04/18 03:15 08:09 Temperature 98 F 98.1 F Pulse Rate 62 55 Respiratory 16 16 Rate Blood Pressure 113/65 130/68 (mmHg) O2 Sat by Pulse 98 97 Oximetry Oxygen Devices in Use Now: None Appearance: Alert, partly up in bed. In good spirits. Looks comfortable. Eyes: No Scleral Icterus Abdominal: NL Sounds; No Tenderness; No Distention, No Hepatosplenomegaly, - Skin: No Rash or Ulcers, No Nodules or Sclerosis, - Neurological: Alert and Oriented x 3, NL Sensation Result Diagrams: 03/04/18 07:19 03/04/18 07:19 Additional Lab and Data: Laboratory Results - last 24 hr 03/02/18 03/02/18 03/02/18 14:40 14:40 14:40 WBC 9.6 RBC 4.81 Hgb 16.5 Hct 48 MCV 100 H MCH 34 H MCHC 35 RDW 13 Plt Count 202 MPV 8.2 Neut % (Auto) 89.5 H Lymph % (Auto) 8.2 L Hunt % (Auto) 1.6 Eos % (Auto) 0.4 Baso % (Auto) 0.3 Absolute Neuts (auto) 8.6 H Absolute Lymphs (auto) 0.8 L Absolute Monos (auto) 0.2 Absolute Eos (auto) 0 Absolute Basos (auto) 0 Absolute Nucleated RBC 0 Nucleated RBC % 0 INR (Anticoag Therapy) Sodium 137 Potassium 3.5 Chloride 102 Carbon Dioxide 26 Anion Gap 9 BUN 16 Creatinine 1.01 Est GFR ( Amer) 89.4 Est GFR (Non-Af Amer) 73.9 BUN/Creatinine Ratio 15.8 Glucose 117 H Lactic Acid 0.6 Calcium 9.4 Total Bilirubin 1.10 H AST 51 H ALT 30 Alkaline Phosphatase 63 C-Reactive Protein 1.23 Total Protein 7.1 Albumin 4.3 Globulin 2.8 Albumin/Globulin Ratio 1.5 Amylase 1702 H Lipase 8768 H Urine Color Urine Appearance Urine pH Ur Specific [place] Urine Protein Urine Ketones Urine Blood Urine Nitrate Urine Bilirubin Urine Urobilinogen Ur Leukocyte Esterase Urine WBC (Auto) Urine RBC (Auto) Urine Bacteria Urine Glucose Serum Alcohol < 10 03/02/18 03/03/18 03/03/18 15:16 07:22 07:22 WBC 8.2 RBC 4.36 Hgb 14.8 Hct 44 MCV 100 H MCH 34 H MCHC 34 RDW 13 Plt Count 176 MPV 8.4 Neut % (Auto) 85.0 H Lymph % (Auto) 8.7 L Hunt % (Auto) 5.4 Eos % (Auto) 0.5 Baso % (Auto) 0.4 Absolute Neuts (auto) 7.0 Absolute Lymphs (auto) 0.7 L Absolute Monos (auto) 0.4 Absolute Eos (auto) 0 Absolute Basos (auto) 0 Absolute Nucleated RBC 0 Nucleated RBC % 0.1 INR (Anticoag Therapy) Sodium 136 Potassium 3.8 Chloride 106 Carbon Dioxide 25 Anion Gap 5 BUN 16 Creatinine 0.90 Est GFR ( Amer) 102.2 Est GFR (Non-Af Amer) 84.4 BUN/Creatinine Ratio 17.8 Glucose 109 H Lactic Acid Calcium 8.4 L Total Bilirubin 1.00 AST 20 ALT 21 Alkaline Phosphatase 56 C-Reactive Protein Total Protein 6.1 L Albumin 3.6 Globulin 2.5 Albumin/Globulin Ratio 1.4 Amylase Lipase Urine Color Yellow Urine Appearance Clear Urine pH 6.0 Ur Specific [place] 1.012 Urine Protein Negative Urine Ketones Negative Urine Blood 1+ A Urine Nitrate Negative Urine Bilirubin Negative Urine Urobilinogen Negative Ur Leukocyte Esterase Negative Urine WBC (Auto) Trace(0-5/hpf) Urine RBC (Auto) 2+(6-10/hpf) A Urine Bacteria Absent Urine Glucose Negative Serum Alcohol 03/03/18 07:22 WBC RBC Hgb Hct MCV MCH MCHC RDW Plt Count MPV Neut % (Auto) Lymph % (Auto) Hunt % (Auto) Eos % (Auto) Baso % (Auto) Absolute Neuts (auto) Absolute Lymphs (auto) Absolute Monos (auto) Absolute Eos (auto) Absolute Basos (auto) Absolute Nucleated RBC Nucleated RBC % INR (Anticoag Therapy) 0.94 Sodium Potassium Chloride Carbon Dioxide Anion Gap BUN Creatinine Est GFR ( Amer) Est GFR (Non-Af Amer) BUN/Creatinine Ratio Glucose Lactic Acid Calcium Total Bilirubin AST ALT Alkaline Phosphatase C-Reactive Protein Total Protein Albumin Globulin Albumin/Globulin Ratio Amylase Lipase Urine Color Urine Appearance Urine pH Ur Specific [place] Urine Protein Urine Ketones Urine Blood Urine Nitrate Urine Bilirubin Urine Urobilinogen Ur Leukocyte Esterase Urine WBC (Auto) Urine RBC (Auto) Urine Bacteria Urine Glucose Serum Alcohol Microbiology and Other Data: Microbiology 03/02/18 15:16 Urine Culture - Final Urine No Growth (<1,000 CFU/mL) Assess/Plan/Problems-Billing Assessment: 67 yo male PMH BPH, gout, GERD, Patton's palsy, pancreatitis x 2 in 2014 p/w abdominal pain, nausea, lipase 8768 and e/o acute pancreatitis on CT abd/ pelvis. Likely EtOH. - Patient Problems (1) Pancreatitis Status: Acute Priority: High Onset Date: 08/24/14 Code(s): K85.9 - ACUTE PANCREATITIS, UNSPECIFIED * DO NOT USE * SNOMED Code(s): 54179262 Comment: Improved. US GB 03/04 showed only hepatic steatosis. I encouraged EtOH cessation 03/04. last RHIANNA in our system was in 2011 before any of his pancreatitis episodes. Will repeat. no meds likely contributing. advance to low fat diet 03/04. He ate 2 low fat meals with no sx's. Discharge home. Status and Disposition: He ate 2 low fat meals with no sx's. Discharge home.
[2018-03-04] MEDS: Finasteride TAB* 5 MG PO SCH (09:00)
[2018-03-04 11:28] VITALS: BP 139/69
--- NOTE | 2018-03-04 14:27 | PN ---
Progress Note - Progress Note Date of Service: 03/04/18 Note: Time spent on discharge 45 minutes, including discussion with patient, nurse, and CM, exam of patient, review of EMR and preparation of discharge documents.
--- NOTE | 2018-03-04 16:29 | DS ---
CC: Dr. Rascon; Dr. Abdul * DATE OF ADMISSION: 03/02/2018. DATE OF DISCHARGE: 03/04/2018. HISTORY OF PRESENT ILLNESS AND HOSPITAL COURSE: This 67-year-old man presented with abdominal pain. He was found to have acute pancreatitis. He had this twice in 2014. He told me he drinks about two beers a day and sometimes four to five a day on the weekend. He did well in the hospital. He was evaluated with ultrasound of the gallbladder which showed hepatic steatosis, but no stones. He had a CT scan of the abdomen and pelvis. His urinary bladder had a volume of 1,[address] scan. There was infiltration of the mesenteric fat surrounding the pancreas with some fluid seen as well. The patient did well with conservative treatment. He had intravenous fluids and pain medication. The pain resolved rather quickly. He was completely pain free. He had two low fat meals on the day of discharge and felt fine. His amylase fell from 8,768 to 680 on the day of discharge. A bladder scan showed a residual approximately 270 ml. I note the patient sees Dr. Abdul regularly and takes two medications for prostate for BPH. He willl have close fup with Dr. Abdul. DISCHARGE DIAGNOSES: 1. Pancreatitis. 2. Alcohol abuse. 3. Prostatism. DISCHARGE MEDICATIONS: 1. Tamsulosin 0.4 mg at bedtime. 2. Multivitamin with mineral daily. 3. Omeprazole 20 mg daily. 4. Finasteride 5 mg daily. 5. Allopurinol 100 mg at bedtime. 6. Ibuprofen 400 mg every 6 hours prn. 7. FiberCon one daily. [id number]/[facility] #: [id number] [facility]
--- NOTE | 2018-03-22 16:35 | DS ---
ADDENDUM TO DISCHARGE SUMMARY DATE OF ADMISSION: 03/02/2018. DATE OF DISCHARGE: 03/04/2018. CONDITION ON DISCHARGE: Improved. DISPOSITION ON DISCHARGE: Discharged home. FOLLOW-UP: Follow-up with Dr. Terry Rascon. [id number]/[facility] #: [id number] MTDJese
== END 2018-03-04 15:00 | disposition home or self-care (01) | DRG 440 ==
LOC: ED 14:03 → MED 17:47
PROVIDERS: ADMIT Internal Medicine; ATTEND Internal Medicine
DX: K85.90 Acute pancreatitis without necrosis or infection, unspecified (principal); K76.0 Fatty (change of) liver, not elsewhere classified; F10.10 Alcohol abuse, uncomplicated; Y90.9 Presence of alcohol in blood, level not specified; N40.0 Benign prostatic hyperplasia without lower urinary tract symptoms; K21.9 Gastro-esophageal reflux disease without esophagitis; M10.9 Gout, unspecified; R29.810 Facial weakness; Z83.79 Family history of other diseases of the digestive system
CPT/HCPCS: 36415; 74177; 76705; 80053; 80320; 81003; 81015; 82150; 83605; 83690; 85025; 85610; 86038; 86140; 87086; 99284; A9270-GY; G0480; J1170; J1644; J2270; J2405; Q9967

== ENCOUNTER 2018-07-01 17:50 | Inpatient (IN) | payer MEDICARE ==
[2018-07-01] MEDS ORDERED: NS 0.9% 1000 ML* 1,000 ML IV ONE ×2 (18:22→22:22)
[2018-07-01] MEDS ORDERED: Morphine VIAL* 4 MG/ML VIAL (1 ml vial) IV ONE (18:23)
[2018-07-01] MEDS ORDERED: Ondansetron INJ* 2 MG/ML VIAL IV ONE (18:23)
--- NOTE | 2018-07-01 18:26 | ED ---
Abdominal Pain/Male - HPI Summary HPI Summary: This patient is a 67 year old M presenting to [facility] accompanied by his with a chief complaint of sharp epigastric pain that began at 1330. The patient rates the pain 6/10 in severity. The pain is worse when he sits up. Patient denies vomiting, fever, chills, and CP. Hx pancreatitis and states the pain is similar. He has had it 3 times in the past and has been admitted each time. Pt denies any aortic history. - History of Current Complaint Stated Complaint: ABD PAIN Time Seen by Provider: 07/01/18 18:04 Hx Obtained From: Patient Onset/Duration: Lasting Hours, Still Present Timing: Constant Severity Initially: Moderate Severity Currently: Moderate Pain Intensity: 6 Pain Scale Used: 0-10 Numeric Location: Epigastric Radiates: No Associated Signs And Symptoms: Negative: Vomiting - Allergies/Home Medications Allergies/Adverse Reactions: Allergies Allergy/AdvReac Type Severity Reaction Status Date / Time 1.5T MRIs ONLY Allergy FOREIGN Uncoded 08/12/16 13:49 METAL IN Lt CHEEK PMH/Surg Hx/FS Hx/Imm Hx Endocrine/Hematology History: Denies: Hx Anticoagulant Therapy, Hx Diabetes, Hx Sickle Cell Disease, Hx Thyroid Disease, Hx Anemia, Hx Unexplained Bleeding Comment Only: Hx Blood Disorders - nn Cardiovascular History: Reports: Hx Hypercholesterolemia Denies: Hx Auto Implanted Cardiovert Defib, Hx Cardiac Arrest, Hx Congestive Heart Failure, Hx Coronary Artery Disease, Hx Deep Vein Thrombosis, Hx Embolism , Hx Hypotension, Hx Hypertension, Hx Pacemaker/ICD, Hx Peripheral Vascular Disease, Hx Rheumatic Fever, Hx Syncope, Hx Valvular Heart Disease Respiratory History: Denies: Hx Asthma, Hx Chronic Obstructive Pulmonary Disease (COPD), Hx Cystic Fibrosis, Hx Pneumonia, Hx Pulmonary Edema, Hx Pulmonary Embolism, Hx Seasonal Allergies GI History: Reports: Hx Diverticulosis - Md diagnosed via [place], Hx Gastroesophageal Reflux Disease - ON MEDICATION FOR, Other GI Disorders - 2 YRS AGO- PACREATITIS Denies: Hx Gastrointestinal Bleed, Hx Irritable Bowel, Hx Jaundice, Hx Obstructive Bowel, Hx Ileostomy, Hx Pyloric Stenosis, Hx Ulcer History: Reports: Hx Benign Prostatic Hyperplasia, Other Problems/ Disorders - slow stream Denies: Hx Acute Renal Failure, Hx Chronic Renal Failure, Hx Dialysis, Hx Kidney Infection Musculoskeletal History: Reports: Hx Arthritis - HANDS, Hx Back Problems, Hx Gout - HX not current, Hx Orthopedic Injury - severed right tricep, surgically reattached Sensory History: Reports: Hx Contacts or Glasses - GLASSES, Hx Vision Problem - wears bifocals, Hx Hearing Aid, Hx Hearing Problem - [place] Left ear Opthamlomology History: Reports: Hx Contacts or Glasses - GLASSES, Hx Vision Problem - wears bifocals Neurological History: Denies: Hx Dementia, Hx Developmental Delay, Hx Headaches, Hx Migraine, Hx Nerve Disease, Hx Seizures, Hx Spinal Cord Injury, Hx Transient Ischemic Attacks (TIA), Other Neuro Impairments/Disorders Psychiatric History: Denies: Hx Panic Disorder - Surgical History Surgery Procedure, Year, and Place: BENIGN SALIVARY TUMOR UNDER LEFT EAR, right ELBOW - TRICEP TENDON TEAR,2 HERNIAS,TONSILECTOMY,HERNIA REPAIR SMALL CHILD Hx Anesthesia Reactions: No Infectious Disease History: Denies: Hx Clostridium Difficile, Hx Hepatitis, Hx Human Immunodeficiency Virus (HIV), Hx of Known/Suspected MRSA, Hx Shingles, Hx Tuberculosis, Hx Known/ Suspected VRE, Hx Known/Suspected VRSA, History Other Infectious Disease - Family History Known Family History: Positive: Other - pancreatitis - Social History Alcohol Use: Daily Alcohol Amount: 1 or 2 beer day Hx Substance Use: No Substance Use Type: Reports: None Substance Use Comment - Amount & Last Used: within the last week or two Hx Tobacco Use: No Smoking Status (MU): Never Smoked Tobacco Review of Systems Negative: Fever, Chills Negative: Chest Pain Positive: Abdominal Pain. Negative: Nausea All Other Systems Reviewed And Are Negative: Yes Physical Exam - Summary Physical Exam Summary: GENERAL: Patient is a well-developed and nourished M who is lying comfortable in the stretcher. Patient is not in any acute respiratory distress. HEAD AND FACE: Normocephalic EYES: PERRLA, EOMI x 2. EARS: Hearing grossly intact. MOUTH: Oropharynx within normal limits. NECK: Supple, trachea is midline, no adenopathy, no JVD, no carotid bruit. CHEST: Symmetric, no tenderness at palpation LUNGS: Clear to auscultation bilaterally. No wheezing or crackles. CVS: Regular rate and rhythm, S1 and S2 present, no murmurs or gallops appreciated. ABDOMEN: Soft, TTP is the epigastrium. Bowel sounds are normal. No abdominal abnormal pulsations. There is no rebound or guarding. Negative kumar's sign. No TTP at mcburney's sign EXTREMITIES: Full ROM in all major joints, no edema, no cyanosis or clubbing. NEURO: Alert and oriented x 3. No acute neurological deficits. Speech is normal and follows commands. SKIN: Dry and warm Triage Information Reviewed: Yes Vital Signs Reviewed: Yes Diagnostics - Laboratory Result Diagrams: 07/02/18 05:37 07/02/18 05:37 Lab Statement: Any lab studies that have been ordered have been reviewed, and results considered in the medical decision making process. Abdominal Pain Fem Course/Dx - Course Assessment/Plan: This patient is a 67 year old M presenting to [facility] accompanied by his with a chief complaint of sharp epigastric pain that began at 1330. The patient rates the pain 6/10 in severity. The pain is worse when he sits up. Patient denies vomiting, fever, chills, and CP. Hx pancreatitis and states the pain is similar. He has had it 3 times in the past and has been admitted each time. Pt denies any aortic history. This patient will be signed out to Dr Tobar awaiting CT, EKG, labs, and dispo. - Diagnoses Provider Diagnoses: Acute pancreatitis Discharge - Sign-Out/Discharge Documenting (check all that apply): Sign-Out Patient Signing out patient TO: Noble Tobar - Discharge Plan Condition: Stable Disposition: ADMITTED TO [facility] - Billing Disposition and Condition Condition: STABLE Disposition: Admitted to [facility] - Attestation Statements Document Initiated by Scribe: Yes Documenting Scribe: Chad Bryant Provider For Whom Petrona is Documenting (Include Credential): Tamara Dos Santos MD Scribe Attestation: Chad Bustamante scribed for Tamara Dos Santos MD on 07/02/18 at 1831. Scribe Documentation Reviewed: Yes Provider Attestation: The documentation as recorded by the Chad leslie accurately reflects the service I personally performed and the decisions made by Tamara tatum MD Status of Scribe Document: Viewed
[2018-07-01 19:08] LABS: ABS Basophils 0 10^3/ul (0-0.2); ABS Eosinophils 0.1 10^3/ul (0-0.6); ABS Lymphocytes 0.6 10^3/ul (1.0-4.8); ABS Monocytes 0.4 10^3/ul (0-0.8); ABS Neutrophils 8.1 10^3/ul (1.5-7.7); ABS Nucleated RBC 0 10^3/ul; Eosinophil % 0.8 %; Hematocrit 42 % (42-52); Hemoglobin 14.4 g/dl (14.0-18.0); Mean Corpuscular HGB Conc 34 g/dl (31-36); Mean Corpuscular Hemoglobin 33 pg (27-31); Mean Corpuscular Volume 97 fL (80-94); Mean Platelet Volume 8.1 fL (7.4-10.4); Nucleated Red Blood Cells % 0; Platelet Count 224 10^3/ul (150-450); Red Blood Count 4.37 10^6/ul (4.00-5.40); Red Cell Distribution Width 13 % (10.5-15); White Blood Count 9.2 10^3/ul (3.5-10.8)
[2018-07-01 19:25] LABS: EGFR Non-African American 92.7 (>60)
--- NOTE | 2018-07-01 20:08 | ED ---
Progress - Progress Note Progress Note: PATIENT WAS SIGNED OUT TO DR. TRAN VIA DR. NEVES, PENDING REPORTS AND DISPOSITION, DURING SHIFT CHANGE ON 07/01/[address] A/P IMPRESSION: 1. Acute interstitial edematous pancreatitis. Modified CT severity index = 2. 2. Bosniak type II renal cyst. No followup indicated. 3. Prostatomegaly with findings of bladder outlet obstruction. - EKG/XRAY/CT EKG: NSR - 65 BPM - 1901 Comments: NO ACUTE CHANGES Re-Evaluation - Re-Evaluation First Eval Re-Evaluation Time: 20:13 Change: Unchanged Comment: PATIENT REPORTS STILL HAVING PAIN. Course/Dx - Course Course Of Treatment: A 67 y/o male presents to the ED accompanied by his c/ o of sharp epigastric pain that began at 1330. The patient rates the pain 6/10 in severity. The pain is worse when he sits up. Patient denies vomiting, fever, chills, and CP. Hx pancreatitis and states the pain is similar. He has had it 3 times in the past and has been admitted each time. Pt denies any aortic history. An EKG revealed NSR of 65 BPM, no acute changes. A CT A/P revealed 1. Acute interstitial edematous pancreatitis. Modified CT severity index = 2. 2. Bosniak type II renal cyst. No followup indicated. 3. Prostatomegaly with findings of bladder outlet obstruction. Hematology and Chemistry were done. In the ED course, the patient recieved Omnipaque, Zofran, Morphine, and IV fluids. Patient care was discussed with hospitalist, Dr. Jones, who accepts patient for admission. Patient will be admitted with a diagnosis of acute pancreatitis. Patient is agreeable with this plan. - Diagnoses Provider Diagnoses: Acute pancreatitis - Provider Notifications Discussed Care Of Patient With: Madina Jones Time Discussed With Above Provider: 20:27 Instructed by Provider To: Other - Accepts patient for admission. Discharge - Sign-Out/Discharge Documenting (check all that apply): Patient Departure - ADMIT, Sign-Out Patient - WALDO Signing out patient TO: Madina Jones Receiving patient FROM: Noble Tran - Discharge Plan Condition: Stable Disposition: ADMITTED TO [facility] Referrals: Terry Rascon MD [Primary Care Provider] - - Billing Disposition and Condition Condition: STABLE Disposition: Admitted to [facility] - Attestation Statements Document Initiated by Petrona: Yes Documenting Scribe: Kian Ambrose Provider For Whom Petrona is Documenting (Include Credential): Noble Tran MD Scribe Attestation: Kian Bustamante, scribed for Noble Tran MD on 07/01/18 at 2146. Scribe Documentation Reviewed: Yes Provider Attestation: The documentation as recorded by the Kian leslie accurately reflects the service I personally performed and the decisions made by Noble tatum MD Status of Scribe Document: Viewed
[2018-07-01] MEDS ORDERED: Iohexol 300* (CONTRAST) 10 ML SDV IV ONE (20:38)
[2018-07-01] MEDS ORDERED: Ondansetron INJ* 2 MG/ML VIAL IV PRN (22:00)
[2018-07-01 22:02] LABS: Urine Appearance Cloudy; Urine Blood Negative (Negative); Urine Color Yellow; Urine Ketones Negative (Negative); Urine Protein Negative (Negative); Urine Specific Gravity 1.014 (1.010-1.030); Urine Urobilinogen Negative (Negative)
[2018-07-01] MEDS: Heparin VIAL(*) 5000 UNITS/ML VIAL (FIVE THOUSAND) SUBCUT SCH (23:53)
[2018-07-02] MEDS: Morphine VIAL* 4 MG/ML VIAL (1 ml vial) IV PRN (00:01)
[2018-07-02] MEDS: NS 0.9% 1000 ML* 1,000 ML IV SCH ×2 (00:38→07:47)
--- NOTE | 2018-07-02 03:38 | HP ---
CC: Terry Rascon MD * HISTORY AND PHYSICAL: DATE OF ADMISSION: 07/01/18 PROVIDER: Rossi Morillo NP ATTENDING PHYSICIAN WHILE IN THE HOSPITAL: Dr. Madina Jones * (dictated by Rossi Morillo NP). CHIEF COMPLAINT: Abdominal pain. HISTORY OF PRESENT ILLNESS: Mr. To is a 67-year-old male with a past medical history significant for pancreatitis, GERD, gout, and enlarged prostate. Mr. To presents to the emergency room with onset of abdominal pain that started at approximately 1:30 p.m. today. He states that after lunch , he developed upper gastric to right upper quadrant abdominal pain. He reports that these symptoms were similar to his previous history of pancreatitis , so he presented to the emergency room for further evaluation. He currently reports his abdominal pain rated as 6, is sharp. He reports the pain becomes worse with sitting up. The patient does report that he has not had any alcoholic beverages since January 2018. He denies any nausea or vomiting or diarrhea. Denies any cough or congestion with fever or chills. While in the emergency room, he was found to have an elevated lipase of 10,737 and amylase of 1312, which correlates with his symptoms of right upper quadrant abdominal pain and epigastric pain. Due to the symptoms and laboratory findings , we were asked by the emergency room to see and evaluate him for admission. PAST MEDICAL HISTORY: Significant for: 1. Pancreatitis. 2. GERD. 3. Gout. 4. Enlarged prostate. PAST SURGICAL HISTORY: 1. Umbilical hernia repair. 2. Inguinal hernia repair. 3. Tonsillectomy. 4. Triceps tendon repair. HOME MEDICATIONS: 1. Omeprazole 20 mg p.o. daily. 2. Multivitamin 1 tablet p.o. daily. 3. Ibuprofen 400 mg p.o. q.6 hours as needed for pain. 4. Finasteride 10 mg p.o. daily. 5. FiberCon 625 mg p.o. daily. 6. Allopurinol 100 mg p.o. q.p.m. 7. Tamsulosin 0.4 mg p.o. daily. ALLERGIES: No known drug allergies. FAMILY HISTORY: Father with a history of an SD at age 61. Sister with a history of diabetes and mother with pancreatic cancer. SOCIAL HISTORY: The patient denies any tobacco use. He reports last alcohol use was in January 2018. Denies any illicit drug use. 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 He is . Surrogate decision maker in the event he is unable to make his own decision is his , Zoey. Her phone number is . He is a full code. REVIEW OF SYSTEMS: There was no documented fever. There has been no unintended weight loss. Denies any chest pain or edema. Denies any cough, congestion, or hemoptysis. Denies any nausea, vomiting, or diarrhea. He does report upper epigastric to right quadrant abdominal pain. Worse with sitting forward and palpation. Denies any gross hematuria. He does report chronic history of difficulty urinating due to enlarged prostate. Neurologic: He denies any weakness or sensory loss. Denies any visual complaints. No dysphagia. Musculoskeletal: No arthralgias or myalgias. No rashes or lesions. Denies any psychosis or anxiety. PHYSICAL EXAMINATION GENERAL: At this time, Mr. To is a 67-year-old male. He is alert and oriented, sitting on the stretcher in the emergency room. He does not appear to be in any acute distress. HEENT: Head is atraumatic, normocephalic. Eyes: EOMs are intact. Sclerae anicteric and not pale. Oral mucosa appeared to be moist. NECK: Supple. LUNGS: Clear to auscultation bilaterally. No wheezes, rales, or rhonchi. CARDIAC: S1, S2. Regular rate and rhythm. No murmurs, rubs, or gallops. ABDOMEN: With upper gastric tenderness. Tenderness to the right upper quadrant. Abdomen is soft. Bowel sounds are present x4. EXTREMITIES: There is no edema. Pedal pulses are +2 bilaterally. He is able to move all 4 extremities with 5/5 strength. NEUROLOGIC: He is awake, alert, and oriented x3. Speech is clear. Thought process is intact. There are no gross focal deficits. SKIN: Intact. LABORATORY DATA AND DIAGNOSTIC STUDIES: WBCs were 9.2, RBCs 4.37, hemoglobin 14.4, hematocrit was 42, platelet count was 224. APTT was 34.4. Chemistries: Sodium 136, potassium 3.6, chloride 105, carbon dioxide was 25, anion gap was 6. BUN was 16, creatinine 0.83. Glucose was 112. Lactic acid was 0.8. Calcium 8.8. Total bilirubin was 1.10. ASTs were 103, ALTs were 65. Alkaline phosphatase was 80. Troponin was 0.00. C-reactive protein was less than 1. Amylase was 1312. Lipase was 10,737. He had an EKG which showed sinus rhythm at a rate of 65. He had a CT of the abdomen and pelvis. Radiologist's impression, acute interstitial edematous pancreatitis. Modified CT sensitivity index equals 2, Bosniak type 2 renal cyst. No follow-up indicated. Prostatomegaly with findings of bladder outlet obstruction. ASSESSMENT AND PLAN: Mr. To is a 67-year-old male with a past medical history significant for pancreatitis, gastroesophageal reflux disease, gout, and enlarged prostate, history of alcohol use, who presented to the emergency room with epigastric to right upper quadrant abdominal pain and was found to have elevated lipase of 10,737. Due to his findings of abdominal pain and elevated amylase and lipase, we were asked to see and evaluate him for admission. He will be admitted under inpatient status for: 1. Pancreatitis. It is unclear the etiology of his pancreatitis at this time. He has not had any alcohol use since January 2018. We will give him IV hydration. He did receive 1 L of IV fluids in the emergency room. I will give him another liter of bolus and continue normal saline at 150 cc per hour. We will repeat a CBC, CMP, lipase and amylase in the a.m. I will give him morphine IV as needed for pain. He will be n.p.o. 2. Gastroesophageal reflux disease. I will place him on Protonix 40 mg IV q.24 hours. 3. Enlarged Prostate. The patient takes Proscar and Flomax at home. I will hold these until he is able to tolerate p.o. food and fluids. 4. FEN: He will be n.p.o. 5. DVT prophylaxis: I will place him on heparin subcu. 5. Code status: He is a full code. TIME SPENT: Time spent on this admission was 60 minutes, greater than half that time was spent [id number] with the patient obtaining my history and physical, the other half of the time was spent going over my plan of care and implementing my plan of care. I have discussed this with my attending, Dr. Madina Jones, she is in agreement with my plan. ROSSI MORILLO, RAIL TRANSPORTATION OPERATOR [id number]/[facility] #: [id number] [facility] OGDEN MEDICAL CENTERJese
[2018-07-02] MEDS: Heparin VIAL(*) 5000 UNITS/ML VIAL (FIVE THOUSAND) SUBCUT SCH ×3 (05:23→22:15)
[2018-07-02 06:01] LABS: ABS Basophils 0 10^3/ul (0-0.2); ABS Eosinophils 0 10^3/ul (0-0.6); ABS Lymphocytes 1.1 10^3/ul (1.0-4.8); ABS Monocytes 0.4 10^3/ul (0-0.8); ABS Neutrophils 5.5 10^3/ul (1.5-7.7); ABS Nucleated RBC 0 10^3/ul; Eosinophil % 0.7 %; Hematocrit 42 % (42-52); Hemoglobin 14.4 g/dl (14.0-18.0); Lymphocyte % 15.1 %; Mean Corpuscular HGB Conc 34 g/dl (31-36); Mean Corpuscular Hemoglobin 33 pg (27-31); Mean Corpuscular Volume 97 fL (80-94); Mean Platelet Volume 8.1 fL (7.4-10.4); Nucleated Red Blood Cells % 0.1; Platelet Count 217 10^3/ul (150-450); Red Blood Count 4.38 10^6/ul (4.00-5.40); Red Cell Distribution Width 13 % (10.5-15); White Blood Count 7.1 10^3/ul (3.5-10.8)
[2018-07-02 06:18] LABS: EGFR Non-African American 87.5 (>60)
[2018-07-02] MEDS: Pantoprazole IV* 40 MG IV SCH (07:48)
--- NOTE | 2018-07-02 09:56 | PN ---
Subjective Date of Service: 07/02/18 Interval History: Resting in bed on assessment. IVF infusing. Reports epigastric abd pain has improved as it is now "3 to 4" out of 10 and was "6 to 7" out of 10 last evening. Denies nausea, vomiting, diarrhea, chest pain, palpitations, shortness of breath. 12 point ROS completed and all other negative. Objective Active Medications: Heparin Sodium (Porcine) (Heparin Vial(*)) 5,000 units SUBCUT Q8HR [facility] Last Admin: 07/02/18 05:23 Dose: 5,000 units Sodium Chloride (Ns 0.9% 1000 Ml*) 1,000 mls @ 150 mls/hr IV PER RATE [facility] Stop: 07/03/18 06:09 Last Admin: 07/02/18 07:47 Dose: 150 mls/hr Morphine Sulfate (Morphine Vial*) 2 mg IV Q4H PRN PRN Reason: PAIN - MILD Last Admin: 07/02/18 00:01 Dose: 2 mg Ondansetron HCl (Zofran Inj*) 4 mg IV Q4H PRN PRN Reason: NAUSEA/VOMITING Pantoprazole Sodium (Protonix Iv*) 40 mg IV Q24H [facility] Last Admin: 07/02/18 07:48 Dose: 40 mg Vital Signs - 8 hr 07/02/18 07/02/18 04:13 07:46 Temperature 97.7 F 98.1 F Pulse Rate 66 66 Respiratory 17 16 Rate Blood Pressure 110/59 98/61 (mmHg) O2 Sat by Pulse 98 96 Oximetry Oxygen Devices in Use Now: None Appearance: Well appearing, NAD Eyes: No Scleral Icterus, PERRLA Ears/Nose/Mouth/Throat: Mucous Membranes Moist Neck: NL Appearance and Movements; NL JVP Respiratory: Symmetrical Chest Expansion and Respiratory Effort, Clear to Auscultation Cardiovascular: NL Sounds; No Murmurs; No JVD, RRR, No Edema Abdominal: NL Sounds; No Tenderness; No Distention, No Hepatosplenomegaly Lymphatic: No Cervical Adenopathy Extremities: No Edema Skin: No Rash or Ulcers Neurological: Alert and Oriented x 3 Result Diagrams: 07/02/18 05:37 07/02/18 05:37 Additional Lab and Data: Laboratory Results - last 24 hr 07/01/18 07/01/18 07/01/18 18:39 18:39 18:40 WBC 9.2 RBC 4.37 Hgb 14.4 Hct 42 MCV 97 H MCH 33 H MCHC 34 RDW 13 Plt Count 224 MPV 8.1 Neut % (Auto) 87.6 Lymph % (Auto) 7.0 Tripp % (Auto) 4.1 Eos % (Auto) 0.8 Baso % (Auto) 0.5 Absolute Neuts (auto) 8.1 H Absolute Lymphs (auto) 0.6 L Absolute Monos (auto) 0.4 Absolute Eos (auto) 0.1 Absolute Basos (auto) 0 Absolute Nucleated RBC 0 Nucleated RBC % 0 APTT 34.4 Sodium 136 Potassium 3.6 Chloride 105 Carbon Dioxide 25 Anion Gap 6 BUN 16 Creatinine 0.83 Est GFR ( Amer) 112.2 Est GFR (Non-Af Amer) 92.7 BUN/Creatinine Ratio 19.3 Glucose 112 H Lactic Acid Calcium 8.8 Total Bilirubin 1.10 H AST 103 H ALT 65 H Alkaline Phosphatase 80 Troponin I 0.00 C-Reactive Protein < 1.00 Total Protein 6.4 Albumin 4.0 Globulin 2.4 Albumin/Globulin Ratio 1.7 Triglycerides Cholesterol LDL Cholesterol HDL Cholesterol Amylase 1312 H Lipase 80533 H Urine Color Urine Appearance Urine pH Ur Specific [place] Urine Protein Urine Ketones Urine Blood Urine Nitrate Urine Bilirubin Urine Urobilinogen Ur Leukocyte Esterase Urine Glucose Urine Ascorbic Acid 07/01/18 07/01/18 07/02/18 18:40 21:51 05:37 WBC 7.1 RBC 4.38 Hgb 14.4 Hct 42 MCV 97 H MCH 33 H MCHC 34 RDW 13 Plt Count 217 MPV 8.1 Neut % (Auto) 77.7 Lymph % (Auto) 15.1 Tripp % (Auto) 6.2 Eos % (Auto) 0.7 Baso % (Auto) 0.3 Absolute Neuts (auto) 5.5 Absolute Lymphs (auto) 1.1 Absolute Monos (auto) 0.4 Absolute Eos (auto) 0 Absolute Basos (auto) 0 Absolute Nucleated RBC 0 Nucleated RBC % 0.1 APTT Sodium Potassium Chloride Carbon Dioxide Anion Gap BUN Creatinine Est GFR ( Amer) Est GFR (Non-Af Amer) BUN/Creatinine Ratio Glucose Lactic Acid 0.8 Calcium Total Bilirubin AST ALT Alkaline Phosphatase Troponin I C-Reactive Protein Total Protein Albumin Globulin Albumin/Globulin Ratio Triglycerides Cholesterol LDL Cholesterol HDL Cholesterol Amylase Lipase Urine Color Yellow Urine Appearance Cloudy Urine pH 6.0 Ur Specific [place] 1.014 Urine Protein Negative Urine Ketones Negative Urine Blood Negative Urine Nitrate Negative Urine Bilirubin Negative Urine Urobilinogen Negative Ur Leukocyte Esterase Negative Urine Glucose Negative Urine Ascorbic Acid * A 07/02/18 05:37 WBC RBC Hgb Hct MCV MCH MCHC RDW Plt Count MPV Neut % (Auto) Lymph % (Auto) Tripp % (Auto) Eos % (Auto) Baso % (Auto) Absolute Neuts (auto) Absolute Lymphs (auto) Absolute Monos (auto) Absolute Eos (auto) Absolute Basos (auto) Absolute Nucleated RBC Nucleated RBC % APTT Sodium 136 Potassium 3.9 Chloride 106 Carbon Dioxide 24 Anion Gap 6 BUN 13 Creatinine 0.87 Est GFR ( Amer) 105.9 Est GFR (Non-Af Amer) 87.5 BUN/Creatinine Ratio 14.9 Glucose 111 H Lactic Acid Calcium 8.5 L Total Bilirubin 1.40 H AST 92 H ALT 115 H Alkaline Phosphatase 91 Troponin I C-Reactive Protein Total Protein 6.1 L Albumin 3.8 Globulin 2.3 Albumin/Globulin Ratio 1.7 Triglycerides 46 Cholesterol 136 LDL Cholesterol 73 HDL Cholesterol 53.7 Amylase 743 H Lipase 2576 H Urine Color Urine Appearance Urine pH Ur Specific [place] Urine Protein Urine Ketones Urine Blood Urine Nitrate Urine Bilirubin Urine Urobilinogen Ur Leukocyte Esterase Urine Glucose Urine Ascorbic Acid Microbiology and Other Data: . Diagnostic Imaging: EXAM DATE/TIME: 07/01/2018 11:08 PM CLINICAL HISTORY: 67 years old, male; Pain; Abdominal pain; Epigastric; Patient HX: HX: 3 episodes of pancreatitis. Epigastric pain. ; Additional info: Pancreatitis, elevated lipase TECHNIQUE: Real-time ultrasound of the abdomen with image documentation. Examination was focused on the right upper quadrant. COMPARISON: GB US GALL BLADDER 03/04/2018 7:32 AM FINDINGS: Liver: Normal liver echogenicity and size with no focal lesions. Normal hepatopetal portal vein flow. Gallbladder: Single gallstone within the gallbladder neck. No gallbladder wall thickening, pericholecystic fluid, or sonographic Sunshine sign. Common bile duct: CBD measures 0.4 cm. Pancreas: Visualized pancreas is unremarkable. Right kidney: Right kidney measures 11.3 x 6.0 x 5.2 cm (184 cc). No solid cortical lesions, calculi, or pelvocaliectasis. Aorta: Mildly atherosclerotic normal caliber aorta measuring 1.5 cm proximally. IMPRESSION: Cholelithiasis without cholecystitis. No additional findings to correlate with patient's symptomatology. EXAM DATE/TIME: 07/01/2018 8:28 PM CLINICAL HISTORY: 67 years old, male; Pain; Abdominal pain; Epigastric; Additional info: Epigastric pain TECHNIQUE: Axial computed tomography images of the abdomen and pelvis with intravenous contrast. All CT scans at this facility use at least one of these dose optimization techniques: automated exposure control; mA and/or kV adjustment per patient size (includes targeted exams where dose is matched to clinical indication); or iterative reconstruction. Coronal and sagittal reformatted images were created and reviewed. CONTRAST: 117 ml of OMNIPAQUE 300 administered intravenously. COMPARISON: A/P W CT ABD/PEL W 03/02/2018 6:24 PM A/P W CT ABD/PEL W 08/24/2014 5:47:49 PM FINDINGS: Lower thorax: The visualized portions of the lung bases are normal. ABDOMEN: Liver: Normal. No mass. Gallbladder and bile ducts: Distended gallbladder with no radiopaque calculi, abnormal thickening, or pericholecystic fluid. Pancreas: Diffuse peripancreatic and intrapancreatic edema extending into the lesser sac, along the mesenteric root, and along the bilateral anterior pararenal fascia. Normal pancreatic parenchymal enhancement with no main ductal dilation or focal lesions. No peripancreatic encapsulated fluid collections. Spleen: Normal. No splenomegaly. Adrenals: Normal. No mass. Kidneys and ureters: Low attenuating renal lesion left mid pole measures 1.6 cm and does not measures simple fluid. No calculi or pelvocaliectasis. Stomach and bowel: Incompletely distended grossly normal stomach. Normal caliber small bowel. Numerous colonic diverticula without adjacent inflammatory changes or associated wall thickening. Appendix: Normal caliber appendix without wall thickening or adjacent inflammation. PELVIS: Bladder: Mildly thick walled urinary bladder. No perivesicular stranding or calcifications. Reproductive: Moderate prostate enlargement. Normal seminal vesicles. EKG Data: . Assess/Plan/Problems-Billing Assessment: 68 yr old male with hx of prancreatitis, GERD, Gout, and Enlarged prostate; who presented to the ED with suddon onset epigastric pain. Found to have pancreatitis as evidence by markedly elevated Amylase and Lipase, pancreatic edema. Pancreatitis suspected to be secondary to gallstones as ultrasound revealed cholithiasis without choleysitits. Patient NPO and receiving IVF. - Patient Problems (1) Pancreatitis Comment: - Presented to ED with epigastric pain. - Found to have pancreatitis as evidence by markedly elevated Amylase (1312) and Lipase (87455) and pancreatic edema. - Pancreatitis suspected to be secondary to gallstones as ultrasound revealed cholithiasis without choleysitits. - Patient NPO. - Receiving supportive care: IVF and IV pain medication - No evidence of CBD dilitation therefore no indication for ERCP at this time, but if Total Billirubin continues to increase, GI will be consulted for ERCP per surgery - Surgery consulted and we appreciate their input. - Planned for elective choli Thursday. - Trend Total Bili. Obtain Coags prior to surg. - Can advance diet as tolerated, but needs to resume NPO after midnight on Thursday in prep for possible surg thursday - Pain improving with supportive care - Labs improving as Amylase is now 743 and Lipase is 2576 - It should also be noted that patient was afebrile and WBC wnl. - Lipid panel WNL - Patient's 4th episode of pancreatitis (2) Cholelithiases Comment: - Ultrasound revealed cholithiasis without choleysitits. - Tentative surg Thursday (3) Abdominal pain Comment: - Improving with supportive care (4) Elevated LFTs Comment: - AST, ALT and Total bilirubin midly elevated. - In the setting of acute pancreatitis is suggestive of gallstone/biliary pancreatitis (5) Alcohol abuse Comment: - Has abstained from ETOH since January 2018 after 3 episodes of pancreatitis (6) BPH (benign prostatic hypertrophy) Comment: - Hold proscar and flomax until patient can tolerate PO (7) GERD (gastroesophageal reflux disease) Comment: - Hold home meds until patient can tolerated PO - IV protonix x 24 hrs at admission (8) Gout Comment: - Holinding home allopurinol until tolerating PO (9) DVT prophylaxis Comment: - Heparin SubQ (10) Full code status Comment: - Full Code Status and Disposition: Patient inpatient for supportive care for pancreatitis as this is his 4th episode. Plan for surg thursday. D/C home when medically stable. Attending: Alissa Mckee
--- NOTE | 2018-07-02 12:06 | PN ---
Progress Note - Progress Note Date of Service: 07/02/18 Note: Surgery Progress Note Please see full dictated Consultation H&P. Briefly 68 yo M with abdominal pain x 1 day, found to have gallstone pancreatitis with amylase/lipase improving, abdominal pain essentially resolved. US showed cholelithiasis, CBD normal (4mm) . However, T bili increased slight from 1.1 to 1.4 today. We have tentatively added him on OR schedule for Thursday for a laparoscopic cholecystectomy with Dr. Lowry. However, if his Tbilis increase over the weekend we will cancel surgery and recommend consulting GI for ERCP. If his Tbili normalizes, will plan to proceed with surgery. His diet can be advanced as tolerated, NPO after midnight on Thursday.
--- NOTE | 2018-07-02 15:45 | CONS ---
CONSULTATION REPORT: DATE OF CONSULT: 07/02/18 SERVICE: General Surgery. SURGEON: Dr. Kristin Aranda. ADMITTING PHYSICIAN: Dr. Madina Jones, Dr. Rossi Morillo. REASON FOR CONSULT: Gallstone pancreatitis. HISTORY OF PRESENT ILLNESS: Ms. To is a 67-year-old gentleman with a history of recurrent pancreatitis, BPH, GERD, who presented to the emergency room yesterday with less than 1 day of epigastric abdominal pain. The patient noted that the pain was very similar to when he has had episodes of pancreatitis in the past. He says that in the past several years, he has had 3 episodes of pancreatitis. At that time, the workup was not conclusive for an etiology and was presumed to be from alcoholic pancreatitis. He did not have any cholelithiasis identified in the past. The patient says that he has had not anything to drink since approximately January or March of this year. He denied having any nausea or vomiting. He was admitted for the hospitalist service yesterday and a workup was performed including a CT scan of the abdomen and pelvis, as well as a right upper quadrant ultrasound, both of which identified pancreatitis as well as cholelithiasis, but not acute cholecystitis. Currently, the patient has very few complaints. He has been NPO and his pain has largely resolved. The last time he had pain medication was yesterday evening. PAST MEDICAL HISTORY: 1. Pancreatitis. 2. GERD. 3. BPH. PAST SURGICAL HISTORY: 1. Umbilical hernia repair. 2. Laparoscopic inguinal hernia repair. 3. Tonsillectomy. 4. Triceps tendon repair. MEDICATIONS: 1. Omeprazole. 2. Multivitamin. 3. Ibuprofen as needed. 4. Finasteride. 5. Allopurinol. 6. Tamsulosin. ALLERGIES: No known drug allergies. FAMILY HISTORY: The father of an VT. SOCIAL HISTORY: The patient is a nonsmoker. He does have a history of alcohol use. He described having 2 to 3 beers a day and having more over the weekends and the patient is . REVIEW OF SYSTEMS: Systems were all negative except for abdominal pain as well as some vision changes. He says he has problems with his eyes, but has not seen an golf course architect. PHYSICAL EXAM: Vital Signs: Temperature is 98.1, pulse is 66, respiratory rate is 16, O2 sat is 96% on room air, and blood pressure is 98/61. General: He is an elderly man, lying comfortably in bed, in no apparent distress. HEENT : Normocephalic, atraumatic. Respiratory: He has no increased work of breathing. Abdomen is soft, nontender, and nondistended. No tenderness to deep palpation in the epigastrium. Some surgical incisions are noted on the umbilicus from laparoscopic inguinal hernia repair. Extremities: No edema. DIAGNOSTIC STUDIES/LAB DATA: Laboratory values from 07/02/18, white blood cell count is 7.1, hemoglobin is 14.4, hematocrit is 42, platelets are 217. BMP: Sodium is 136, potassium is 3.9, chloride is 106, CO2 is 24, BUN is 13, creatinine is 0.87, glucose is 111. Total bilirubin is 1.4 since yesterday 1.1 , AST is 92, ALT is 115. Amylase is 743, down from 1312 yesterday, lipase is 2576, down from [address] yesterday. Imaging: CT abdomen and pelvis from 07/01/18, CT scan was reviewed. Please see final report. Briefly, the pancreas was noted to have a diffuse peripancreatic edema extending into the lesser sac along the mesenteric root and along the bilateral anterior perirenal fascia. Normal pancreatic parenchymal enhancement with no main ductal dilation or focal lesions. No peripancreatic encapsulated fluid collections. Final impression: Acute interstitial edematous pancreatitis, Bosniak type 2 renal cyst, prostatomegaly with findings of bladder outlet obstruction. Abdominal ultrasound on 07/01/18, cholelithiasis without cholecystitis. There was a single gallstone within the gallbladder neck. No gallbladder wall thickening. Pericholecystic fluid. The common bile duct measures 4 mm. ASSESSMENT AND PLAN: Mr. To is a 68-year-old gentleman with a history of recurrent pancreatitis, who now presents today with his fourth episode of pancreatitis, the etiology of which is likely due to gallstones. In the past, he has had ultrasounds and imaging that have not identified any cholelithiasis; however, he does now appear to have a single stone. His elevated bilirubin is concerning for choledocholithiasis, despite having a normal CBD. The patient is currently comfortable without abdominal pain and his lipase and amylase are trending downwards, although total bilirubin is trending upward slightly. We recommend that the patient continue receiving IV fluids. His diet can likely be advanced given that his abdominal pain appears to be resolving. He should continue having pain medications for pain control, and I recommend to continue to trend the total bilirubin. If it continues to climb, then I recommend consulting Gastroenterology for an ERCP to make sure that the common bile duct is clear of stones. If the bilirubin continues to trend downward and the patient's exam continues to be improved and benign, then the patient should undergo a laparoscopic cholecystectomy, which can be done either on this admission if the bilirubins have normalized or it could be done as an outpatient with the short interval followup. I discussed this plan with the patient and he is agreeable to either inpatient cholecystectomy or one arranged as an outpatient in the short interval. I explained to him the risks, benefits , and alternatives of the laparoscopic cholecystectomy and we will provide educational information for him to show to his . All of his questions were answered at the end of the consultation. TIME SPENT: Time spent on this consultation was 40 minutes greater than half the time was spent [id number] obtaining the history and physical and educational information. The other half was spent on reviewing the patient's care and implementing the plan of care. [id number]/[facility] #: [id number] LEN
[2018-07-03] MEDS: Heparin VIAL(*) 5000 UNITS/ML VIAL (FIVE THOUSAND) SUBCUT SCH ×3 (05:48→22:01)
[2018-07-03 07:35] LABS: ABS Basophils 0 10^3/ul (0-0.2); ABS Eosinophils 0.2 10^3/ul (0-0.6); ABS Monocytes 0.3 10^3/ul (0-0.8); ABS Neutrophils 2.6 10^3/ul (1.5-7.7); ABS Nucleated RBC 0 10^3/ul; Eosinophil % 4.2 %; Hematocrit 39 % (42-52); Hemoglobin 13.4 g/dl (14.0-18.0); Lymphocyte % 23.5 %; Mean Corpuscular HGB Conc 34 g/dl (31-36); Mean Corpuscular Hemoglobin 33 pg (27-31); Mean Corpuscular Volume 97 fL (80-94); Mean Platelet Volume 7.8 fL (7.4-10.4); Nucleated Red Blood Cells % 0.2; Platelet Count 193 10^3/ul (150-450); Red Blood Count 4.05 10^6/ul (4.00-5.40); Red Cell Distribution Width 13 % (10.5-15); White Blood Count 4.1 10^3/ul (3.5-10.8)
[2018-07-03 07:54] LABS: EGFR Non-African American 92.4 (>60)
[2018-07-03] MEDS: Pantoprazole IV* 40 MG IV SCH (08:32)
--- NOTE | 2018-07-03 09:38 | PN ---
Progress Note - Progress Note Date of Service: 07/03/18 Note: Surgery Progress Note S: 68 yo M admitted with epigastric abdominal pain, found to have gallstone pancreatitis on CT and RUQ US. He is doing well. No complaints. No abdominal pain. He is tolerating a diet. Objective: Vital Signs - 24 hr 07/02/18 07/02/18 07/02/18 11:06 16:04 19:51 Temperature 98.1 F 97.0 F 97.3 F Pulse Rate 61 59 62 Respiratory 16 16 18 Rate Blood Pressure 113/63 125/67 123/66 (mmHg) O2 Sat by Pulse 98 98 98 Oximetry 07/02/18 07/02/18 07/03/18 20:00 23:49 03:33 Temperature 97.5 F 97.5 F Pulse Rate 62 58 Respiratory 18 16 16 Rate Blood Pressure 139/67 109/60 (mmHg) O2 Sat by Pulse 100 98 Oximetry 07/03/18 07:21 Temperature 97.7 F Pulse Rate 53 Respiratory 16 Rate Blood Pressure 106/60 (mmHg) O2 Sat by Pulse 97 Oximetry Intake & Output 07/02/18 07/03/18 07/03/18 22:59 06:59 14:59 Intake Total 900 20 200 Balance 900 20 200 Intake: IV Fluids 20 20 NS (0.9%) 20 20 Oral 880 0 200 Other: Estimated Void Large # Bowel Movements 0 0 # Voids 1 0 Laboratory Results - last 24 hr 07/03/18 07/03/18 07:28 07:28 WBC 4.1 RBC 4.05 Hgb 13.4 L Hct 39 L MCV 97 H MCH 33 H MCHC 34 RDW 13 Plt Count 193 MPV 7.8 Neut % (Auto) 63.8 Lymph % (Auto) 23.5 [place] % (Auto) 7.5 Eos % (Auto) 4.2 Baso % (Auto) 1.0 Absolute Neuts (auto) 2.6 Absolute Lymphs (auto) 1.0 Absolute Monos (auto) 0.3 Absolute Eos (auto) 0.2 Absolute Basos (auto) 0 Absolute Nucleated RBC 0 Nucleated RBC % 0.2 Sodium 135 Potassium 3.7 Chloride 106 Carbon Dioxide 24 Anion Gap 5 BUN 11 Creatinine 0.83 Est GFR ( Amer) 111.8 Est GFR (Non-Af Amer) 92.4 BUN/Creatinine Ratio 13.3 Glucose 99 Calcium 8.6 Total Bilirubin 0.80 AST 32 ALT 64 H Alkaline Phosphatase 73 Total Protein 5.7 L Albumin 3.6 Globulin 2.1 Albumin/Globulin Ratio 1.7 Amylase 320 H Lipase 944 H Abdomen: soft, NTND A/P: 68 yo M with gallstone pancreatitis, doing well. - Tbili has normalized, if patient had small CBD stone likely passed by now. Continue to follow t bili tomorrow. - Plan to proceed with laparoscopic cholecystectomy on Thursday morning with Dr. Lowry. Patient should be NPO after midnight on Thursday. He can likely be discharged home after surgery Thursday.
--- NOTE | 2018-07-03 13:44 | PN ---
Subjective Date of Service: 07/03/18 Interval History: Pt seen and examined. Meds and labs reviewed. Pt mentions he tolerates current diet. Advanced diet to full liquid today. Please see discussion below. CC: N/A ROS: Denied BRANNON/dizziness, F/C, N/V, CP, SOB, increased cough, sputum production , abd pain, diarrhea, constipation, dysuria, myalgias, arthralgias, throat pain , and new skin lesions. The rest of the 14 point ROS are unremarkable. PHYSICAL EXAM: GEN APPEARANCE: Awake, not in acute distress HEENT: NC/AT, PERRLA, moist oral mucosa, (-) throat erythema NECK: Soft, supple, (-) cervical LAD, (-)JVD HEART: S1S2 WNL, RRR, No MRG CHEST: CTA, BL, GAE, No W/R/R ABD: Soft, ND/NT, NABS 4x Q EXT: No C/C/E SKIN: Warm to touch PSYCH: No active psychosis, hallucinations, depression, SI/HI Objective Active Medications: Heparin Sodium (Porcine) (Heparin Vial(*)) 5,000 units SUBCUT Q8HR [facility] Last Admin: 07/03/18 05:48 Dose: 5,000 units Morphine Sulfate (Morphine Vial*) 2 mg IV Q4H PRN PRN Reason: PAIN - MILD Last Admin: 07/02/18 00:01 Dose: 2 mg Ondansetron HCl (Zofran Inj*) 4 mg IV Q4H PRN PRN Reason: NAUSEA/VOMITING Pantoprazole Sodium (Protonix Iv*) 40 mg IV Q24H [facility] Last Admin: 07/03/18 08:32 Dose: 40 mg Vital Signs - 8 hr 07/03/18 07/03/18 07:21 08:00 Temperature 97.7 F Pulse Rate 53 Respiratory 16 16 Rate Blood Pressure 106/60 (mmHg) O2 Sat by Pulse 97 Oximetry Oxygen Devices in Use Now: None Result Diagrams: 07/03/18 07:28 07/03/18 07:28 Additional Lab and Data: Laboratory Results - last 24 hr 07/01/18 07/01/18 07/01/18 18:39 18:39 18:40 WBC 9.2 RBC 4.37 Hgb 14.4 Hct 42 MCV 97 H MCH 33 H MCHC 34 RDW 13 Plt Count 224 MPV 8.1 Neut % (Auto) 87.6 Lymph % (Auto) 7.0 Sebastian % (Auto) 4.1 Eos % (Auto) 0.8 Baso % (Auto) 0.5 Absolute Neuts (auto) 8.1 H Absolute Lymphs (auto) 0.6 L Absolute Monos (auto) 0.4 Absolute Eos (auto) 0.1 Absolute Basos (auto) 0 Absolute Nucleated RBC 0 Nucleated RBC % 0 APTT 34.4 Sodium 136 Potassium 3.6 Chloride 105 Carbon Dioxide 25 Anion Gap 6 BUN 16 Creatinine 0.83 Est GFR ( Amer) 112.2 Est GFR (Non-Af Amer) 92.7 BUN/Creatinine Ratio 19.3 Glucose 112 H Lactic Acid Calcium 8.8 Total Bilirubin 1.10 H AST 103 H ALT 65 H Alkaline Phosphatase 80 Troponin I 0.00 C-Reactive Protein < 1.00 Total Protein 6.4 Albumin 4.0 Globulin 2.4 Albumin/Globulin Ratio 1.7 Triglycerides Cholesterol LDL Cholesterol HDL Cholesterol Amylase 1312 H Lipase 76964 H Urine Color Urine Appearance Urine pH Ur Specific [place] Urine Protein Urine Ketones Urine Blood Urine Nitrate Urine Bilirubin Urine Urobilinogen Ur Leukocyte Esterase Urine Glucose Urine Ascorbic Acid 07/01/18 07/01/18 07/02/18 18:40 21:51 05:37 WBC 7.1 RBC 4.38 Hgb 14.4 Hct 42 MCV 97 H MCH 33 H MCHC 34 RDW 13 Plt Count 217 MPV 8.1 Neut % (Auto) 77.7 Lymph % (Auto) 15.1 Sebastian % (Auto) 6.2 Eos % (Auto) 0.7 Baso % (Auto) 0.3 Absolute Neuts (auto) 5.5 Absolute Lymphs (auto) 1.1 Absolute Monos (auto) 0.4 Absolute Eos (auto) 0 Absolute Basos (auto) 0 Absolute Nucleated RBC 0 Nucleated RBC % 0.1 APTT Sodium Potassium Chloride Carbon Dioxide Anion Gap BUN Creatinine Est GFR ( Amer) Est GFR (Non-Af Amer) BUN/Creatinine Ratio Glucose Lactic Acid 0.8 Calcium Total Bilirubin AST ALT Alkaline Phosphatase Troponin I C-Reactive Protein Total Protein Albumin Globulin Albumin/Globulin Ratio Triglycerides Cholesterol LDL Cholesterol HDL Cholesterol Amylase Lipase Urine Color Yellow Urine Appearance Cloudy Urine pH 6.0 Ur Specific [place] 1.014 Urine Protein Negative Urine Ketones Negative Urine Blood Negative Urine Nitrate Negative Urine Bilirubin Negative Urine Urobilinogen Negative Ur Leukocyte Esterase Negative Urine Glucose Negative Urine Ascorbic Acid * A 07/02/18 05:37 WBC RBC Hgb Hct MCV MCH MCHC RDW Plt Count MPV Neut % (Auto) Lymph % (Auto) Sebastian % (Auto) Eos % (Auto) Baso % (Auto) Absolute Neuts (auto) Absolute Lymphs (auto) Absolute Monos (auto) Absolute Eos (auto) Absolute Basos (auto) Absolute Nucleated RBC Nucleated RBC % APTT Sodium 136 Potassium 3.9 Chloride 106 Carbon Dioxide 24 Anion Gap 6 BUN 13 Creatinine 0.87 Est GFR ( Amer) 105.9 Est GFR (Non-Af Amer) 87.5 BUN/Creatinine Ratio 14.9 Glucose 111 H Lactic Acid Calcium 8.5 L Total Bilirubin 1.40 H AST 92 H ALT 115 H Alkaline Phosphatase 91 Troponin I C-Reactive Protein Total Protein 6.1 L Albumin 3.8 Globulin 2.3 Albumin/Globulin Ratio 1.7 Triglycerides 46 Cholesterol 136 LDL Cholesterol 73 HDL Cholesterol 53.7 Amylase 743 H Lipase 2576 H Urine Color Urine Appearance Urine pH Ur Specific [place] Urine Protein Urine Ketones Urine Blood Urine Nitrate Urine Bilirubin Urine Urobilinogen Ur Leukocyte Esterase Urine Glucose Urine Ascorbic Acid Microbiology and Other Data: . Diagnostic Imaging: EXAM DATE/TIME: 07/01/2018 11:08 PM CLINICAL HISTORY: 67 years old, male; Pain; Abdominal pain; Epigastric; Patient HX: HX: 3 episodes of pancreatitis. Epigastric pain. ; Additional info: Pancreatitis, elevated lipase TECHNIQUE: Real-time ultrasound of the abdomen with image documentation. Examination was focused on the right upper quadrant. COMPARISON: GB US GALL BLADDER 03/04/2018 7:32 AM FINDINGS: Liver: Normal liver echogenicity and size with no focal lesions. Normal hepatopetal portal vein flow. Gallbladder: Single gallstone within the gallbladder neck. No gallbladder wall thickening, pericholecystic fluid, or sonographic Sunshine sign. Common bile duct: CBD measures 0.4 cm. Pancreas: Visualized pancreas is unremarkable. Right kidney: Right kidney measures 11.3 x 6.0 x 5.2 cm (184 cc). No solid cortical lesions, calculi, or pelvocaliectasis. Aorta: Mildly atherosclerotic normal caliber aorta measuring 1.5 cm proximally. IMPRESSION: Cholelithiasis without cholecystitis. No additional findings to correlate with patient's symptomatology. EXAM DATE/TIME: 07/01/2018 8:28 PM CLINICAL HISTORY: 67 years old, male; Pain; Abdominal pain; Epigastric; Additional info: Epigastric pain TECHNIQUE: Axial computed tomography images of the abdomen and pelvis with intravenous contrast. All CT scans at this facility use at least one of these dose optimization techniques: automated exposure control; mA and/or kV adjustment per patient size (includes targeted exams where dose is matched to clinical indication); or iterative reconstruction. Coronal and sagittal reformatted images were created and reviewed. CONTRAST: 117 ml of OMNIPAQUE 300 administered intravenously. COMPARISON: A/P W CT ABD/PEL W 03/02/2018 6:24 PM A/P W CT ABD/PEL W 08/24/2014 5:47:49 PM FINDINGS: Lower thorax: The visualized portions of the lung bases are normal. ABDOMEN: Liver: Normal. No mass. Gallbladder and bile ducts: Distended gallbladder with no radiopaque calculi, abnormal thickening, or pericholecystic fluid. Pancreas: Diffuse peripancreatic and intrapancreatic edema extending into the lesser sac, along the mesenteric root, and along the bilateral anterior pararenal fascia. Normal pancreatic parenchymal enhancement with no main ductal dilation or focal lesions. No peripancreatic encapsulated fluid collections. Spleen: Normal. No splenomegaly. Adrenals: Normal. No mass. Kidneys and ureters: Low attenuating renal lesion left mid pole measures 1.6 cm and does not measures simple fluid. No calculi or pelvocaliectasis. Stomach and bowel: Incompletely distended grossly normal stomach. Normal caliber small bowel. Numerous colonic diverticula without adjacent inflammatory changes or associated wall thickening. Appendix: Normal caliber appendix without wall thickening or adjacent inflammation. PELVIS: Bladder: Mildly thick walled urinary bladder. No perivesicular stranding or calcifications. Reproductive: Moderate prostate enlargement. Normal seminal vesicles. EKG Data: . Assess/Plan/Problems-Billing Assessment: 68 yr old male with hx of prancreatitis, GERD, Gout, and Enlarged prostate; who presented to the ED with suddon onset epigastric pain. Found to have pancreatitis as evidence by markedly elevated Amylase and Lipase, pancreatic edema. Pancreatitis suspected to be secondary to gallstones as ultrasound revealed cholithiasis without choleysitits. Patient NPO and receiving IVF. - Patient Problems (1) Gallstone pancreatitis Current Visit: Yes Status: Acute Code(s): K85.10 - BILIARY ACUTE PANCREATITIS WITHOUT NECROSIS OR INFECTION SNOMED Code(s): 96971124 Comment: -Clinical improvement correlates with decreasing amylase and lipase levels -Fasting lipid levels reviewed and at goal -For lap cr on Thursday -Advanced diet as discussed and if tolerates may go on GI soft in AM then NPO at midnight tomorrow due to planned OR (2) Abdominal pain Current Visit: No Status: Acute Priority: High Onset Date: 08/24/14 Code (s): R10.9 - UNSPECIFIED ABDOMINAL PAIN SNOMED Code(s): 65731984 Comment: -Well-controlled -Continue current regimen (3) GERD (gastroesophageal reflux disease) Current Visit: No Status: Chronic Code(s): K21.9 - GASTRO-ESOPHAGEAL REFLUX DISEASE WITHOUT ESOPHAGITIS SNOMED Code(s): 741147553 Comment: -Continue pantoprazole (4) Elevated LFTs Current Visit: No Status: Acute Priority: Medium Onset Date: 08/24/14 Code(s): R79.89 - OTHER SPECIFIED ABNORMAL FINDINGS OF BLOOD CHEMISTRY SNOMED Code(s): 142671061 Comment: - AST, ALT and Total bilirubin midly elevated. - In the setting of acute pancreatitis is suggestive of gallstone/biliary pancreatitis (5) Alcohol abuse Current Visit: No Status: Chronic Code(s): F10.10 - ALCOHOL ABUSE, UNCOMPLICATED SNOMED Code(s): 21638570 Comment: - Has abstained from ETOH since January 2018 after 3 episodes of pancreatitis (6) BPH (benign prostatic hypertrophy) Current Visit: No Status: Chronic Code(s): N40.0 - BENIGN PROSTATIC HYPERPLASIA WITHOUT LOWER URINRY TRACT SYMP SNOMED Code(s): 084210348 Comment: -Continue to hold Finasteride and Flomax (7) Gout Current Visit: No Status: Chronic Code(s): M10.9 - GOUT, UNSPECIFIED SNOMED Code(s): 28400434 Comment: - Holinding home allopurinol until tolerating PO (8) DVT prophylaxis Current Visit: No Status: Acute Priority: Medium Onset Date: 08/24/14 Code(s): AFW0653 - SNOMED Code(s): 997950751 Comment: -Continue Heparin SQq8H Status and Disposition: Patient inpatient for supportive care for pancreatitis as this is his 4th episode. Plan for surg thursday. D/C home when medically stable.
[2018-07-04] MEDS: Heparin VIAL(*) 5000 UNITS/ML VIAL (FIVE THOUSAND) SUBCUT SCH ×3 (05:59→21:51)
[2018-07-04 07:08] LABS: ABS Basophils 0 10^3/ul (0-0.2); ABS Eosinophils 0.2 10^3/ul (0-0.6); ABS Lymphocytes 1.1 10^3/ul (1.0-4.8); ABS Monocytes 0.4 10^3/ul (0-0.8); ABS Nucleated RBC 0 10^3/ul; Hematocrit 41 % (42-52); Hemoglobin 14.1 g/dl (14.0-18.0); Lymphocyte % 28.7 %; Mean Corpuscular HGB Conc 34 g/dl (31-36); Mean Corpuscular Hemoglobin 33 pg (27-31); Mean Corpuscular Volume 97 fL (80-94); Nucleated Red Blood Cells % 0.1; Platelet Count 193 10^3/ul (150-450); Red Cell Distribution Width 13 % (10.5-15); White Blood Count 3.7 10^3/ul (3.5-10.8)
[2018-07-04 07:14] LABS: INR 0.89 (0.77-1.02)
[2018-07-04 07:25] LABS: EGFR Non-African American 88.7 (>60)
[2018-07-04] MEDS: Pantoprazole IV* 40 MG IV SCH (08:51)
--- NOTE | 2018-07-04 14:47 | PN ---
Subjective Date of Service: 07/04/18 Interval History: Pt seen and examined. Meds and labs reviewed. CC: CP across BL chest during transfers ROS: Denied BRANNON/dizziness, F/C, N/V, SOB, increased cough, sputum production, abd pain, diarrhea, constipation, dysuria, myalgias, arthralgias, throat pain, and new skin lesions. The rest of the 14 point ROS are unremarkable. PHYSICAL EXAM: GEN APPEARANCE: Awake, not in acute distress HEENT: NC/AT, PERRLA, moist oral mucosa, (-) throat erythema NECK: Soft, supple, (-) cervical LAD, (-)JVD HEART: S1S2 WNL, RRR, No MRG CHEST: CTA, BL, GAE, No W/R/R, (+) tender anterior chest wall on mild to moderate palpation ABD: Soft, ND/NT, NABS 4x Q EXT: No C/C/E SKIN: Warm to touch PSYCH: No active psychosis, hallucinations, depression, SI/HI Objective Active Medications: Heparin Sodium (Porcine) (Heparin Vial(*)) 5,000 units SUBCUT Q8HR [facility] Last Admin: 07/04/18 13:21 Dose: 5,000 units Morphine Sulfate (Morphine Vial*) 2 mg IV Q4H PRN PRN Reason: PAIN - MILD Last Admin: 07/02/18 00:01 Dose: 2 mg Ondansetron HCl (Zofran Inj*) 4 mg IV Q4H PRN PRN Reason: NAUSEA/VOMITING Pantoprazole Sodium (Protonix Iv*) 40 mg IV Q24H [facility] Last Admin: 07/04/18 08:51 Dose: 40 mg Tamsulosin HCl (Flomax Cap*) 0.4 mg PO BEDTIME [facility] Vital Signs - 8 hr 07/04/18 07/04/18 08:00 08:28 Temperature 97.7 F Pulse Rate 56 Respiratory 16 18 Rate Blood Pressure 143/78 (mmHg) O2 Sat by Pulse 99 Oximetry Oxygen Devices in Use Now: None Result Diagrams: 07/04/18 06:54 07/04/18 06:54 Additional Lab and Data: Laboratory Results - last 24 hr 07/01/18 07/01/18 07/01/18 18:39 18:39 18:40 WBC 9.2 RBC 4.37 Hgb 14.4 Hct 42 MCV 97 H MCH 33 H MCHC 34 RDW 13 Plt Count 224 MPV 8.1 Neut % (Auto) 87.6 Lymph % (Auto) 7.0 [place] % (Auto) 4.1 Eos % (Auto) 0.8 Baso % (Auto) 0.5 Absolute Neuts (auto) 8.1 H Absolute Lymphs (auto) 0.6 L Absolute Monos (auto) 0.4 Absolute Eos (auto) 0.1 Absolute Basos (auto) 0 Absolute Nucleated RBC 0 Nucleated RBC % 0 APTT 34.4 Sodium 136 Potassium 3.6 Chloride 105 Carbon Dioxide 25 Anion Gap 6 BUN 16 Creatinine 0.83 Est GFR ( Amer) 112.2 Est GFR (Non-Af Amer) 92.7 BUN/Creatinine Ratio 19.3 Glucose 112 H Lactic Acid Calcium 8.8 Total Bilirubin 1.10 H AST 103 H ALT 65 H Alkaline Phosphatase 80 Troponin I 0.00 C-Reactive Protein < 1.00 Total Protein 6.4 Albumin 4.0 Globulin 2.4 Albumin/Globulin Ratio 1.7 Triglycerides Cholesterol LDL Cholesterol HDL Cholesterol Amylase 1312 H Lipase 71085 H Urine Color Urine Appearance Urine pH Ur Specific [place] Urine Protein Urine Ketones Urine Blood Urine Nitrate Urine Bilirubin Urine Urobilinogen Ur Leukocyte Esterase Urine Glucose Urine Ascorbic Acid 07/01/18 07/01/18 07/02/18 18:40 21:51 05:37 WBC 7.1 RBC 4.38 Hgb 14.4 Hct 42 MCV 97 H MCH 33 H MCHC 34 RDW 13 Plt Count 217 MPV 8.1 Neut % (Auto) 77.7 Lymph % (Auto) 15.1 [place] % (Auto) 6.2 Eos % (Auto) 0.7 Baso % (Auto) 0.3 Absolute Neuts (auto) 5.5 Absolute Lymphs (auto) 1.1 Absolute Monos (auto) 0.4 Absolute Eos (auto) 0 Absolute Basos (auto) 0 Absolute Nucleated RBC 0 Nucleated RBC % 0.1 APTT Sodium Potassium Chloride Carbon Dioxide Anion Gap BUN Creatinine Est GFR ( Amer) Est GFR (Non-Af Amer) BUN/Creatinine Ratio Glucose Lactic Acid 0.8 Calcium Total Bilirubin AST ALT Alkaline Phosphatase Troponin I C-Reactive Protein Total Protein Albumin Globulin Albumin/Globulin Ratio Triglycerides Cholesterol LDL Cholesterol HDL Cholesterol Amylase Lipase Urine Color Yellow Urine Appearance Cloudy Urine pH 6.0 Ur Specific [place] 1.014 Urine Protein Negative Urine Ketones Negative Urine Blood Negative Urine Nitrate Negative Urine Bilirubin Negative Urine Urobilinogen Negative Ur Leukocyte Esterase Negative Urine Glucose Negative Urine Ascorbic Acid * A 07/02/18 05:37 WBC RBC Hgb Hct MCV MCH MCHC RDW Plt Count MPV Neut % (Auto) Lymph % (Auto) [place] % (Auto) Eos % (Auto) Baso % (Auto) Absolute Neuts (auto) Absolute Lymphs (auto) Absolute Monos (auto) Absolute Eos (auto) Absolute Basos (auto) Absolute Nucleated RBC Nucleated RBC % APTT Sodium 136 Potassium 3.9 Chloride 106 Carbon Dioxide 24 Anion Gap 6 BUN 13 Creatinine 0.87 Est GFR ( Amer) 105.9 Est GFR (Non-Af Amer) 87.5 BUN/Creatinine Ratio 14.9 Glucose 111 H Lactic Acid Calcium 8.5 L Total Bilirubin 1.40 H AST 92 H ALT 115 H Alkaline Phosphatase 91 Troponin I C-Reactive Protein Total Protein 6.1 L Albumin 3.8 Globulin 2.3 Albumin/Globulin Ratio 1.7 Triglycerides 46 Cholesterol 136 LDL Cholesterol 73 HDL Cholesterol 53.7 Amylase 743 H Lipase 2576 H Urine Color Urine Appearance Urine pH Ur Specific [place] Urine Protein Urine Ketones Urine Blood Urine Nitrate Urine Bilirubin Urine Urobilinogen Ur Leukocyte Esterase Urine Glucose Urine Ascorbic Acid Microbiology and Other Data: . Diagnostic Imaging: EXAM DATE/TIME: 07/01/2018 11:08 PM CLINICAL HISTORY: 67 years old, male; Pain; Abdominal pain; Epigastric; Patient HX: HX: 3 episodes of pancreatitis. Epigastric pain. ; Additional info: Pancreatitis, elevated lipase TECHNIQUE: Real-time ultrasound of the abdomen with image documentation. Examination was focused on the right upper quadrant. COMPARISON: GB US GALL BLADDER 03/04/2018 7:32 AM FINDINGS: Liver: Normal liver echogenicity and size with no focal lesions. Normal hepatopetal portal vein flow. Gallbladder: Single gallstone within the gallbladder neck. No gallbladder wall thickening, pericholecystic fluid, or sonographic Sunshine sign. Common bile duct: CBD measures 0.4 cm. Pancreas: Visualized pancreas is unremarkable. Right kidney: Right kidney measures 11.3 x 6.0 x 5.2 cm (184 cc). No solid cortical lesions, calculi, or pelvocaliectasis. Aorta: Mildly atherosclerotic normal caliber aorta measuring 1.5 cm proximally. IMPRESSION: Cholelithiasis without cholecystitis. No additional findings to correlate with patient's symptomatology. EXAM DATE/TIME: 07/01/2018 8:28 PM CLINICAL HISTORY: 67 years old, male; Pain; Abdominal pain; Epigastric; Additional info: Epigastric pain TECHNIQUE: Axial computed tomography images of the abdomen and pelvis with intravenous contrast. All CT scans at this facility use at least one of these dose optimization techniques: automated exposure control; mA and/or kV adjustment per patient size (includes targeted exams where dose is matched to clinical indication); or iterative reconstruction. Coronal and sagittal reformatted images were created and reviewed. CONTRAST: 117 ml of OMNIPAQUE 300 administered intravenously. COMPARISON: A/P W CT ABD/PEL W 03/02/2018 6:24 PM A/P W CT ABD/PEL W 08/24/2014 5:47:49 PM FINDINGS: Lower thorax: The visualized portions of the lung bases are normal. ABDOMEN: Liver: Normal. No mass. Gallbladder and bile ducts: Distended gallbladder with no radiopaque calculi, abnormal thickening, or pericholecystic fluid. Pancreas: Diffuse peripancreatic and intrapancreatic edema extending into the lesser sac, along the mesenteric root, and along the bilateral anterior pararenal fascia. Normal pancreatic parenchymal enhancement with no main ductal dilation or focal lesions. No peripancreatic encapsulated fluid collections. Spleen: Normal. No splenomegaly. Adrenals: Normal. No mass. Kidneys and ureters: Low attenuating renal lesion left mid pole measures 1.6 cm and does not measures simple fluid. No calculi or pelvocaliectasis. Stomach and bowel: Incompletely distended grossly normal stomach. Normal caliber small bowel. Numerous colonic diverticula without adjacent inflammatory changes or associated wall thickening. Appendix: Normal caliber appendix without wall thickening or adjacent inflammation. PELVIS: Bladder: Mildly thick walled urinary bladder. No perivesicular stranding or calcifications. Reproductive: Moderate prostate enlargement. Normal seminal vesicles. EKG Data: . Assess/Plan/Problems-Billing Assessment: 68 yr old male with hx of prancreatitis, GERD, Gout, and Enlarged prostate; who presented to the ED with suddon onset epigastric pain. Found to have pancreatitis as evidence by markedly elevated Amylase and Lipase, pancreatic edema. Pancreatitis suspected to be secondary to gallstones as ultrasound revealed cholithiasis without choleysitits. Patient NPO and receiving IVF. - Patient Problems (1) Gallstone pancreatitis Current Visit: Yes Status: Acute Code(s): K85.10 - BILIARY ACUTE PANCREATITIS WITHOUT NECROSIS OR INFECTION SNOMED Code(s): 25706776 Comment: -Clinical improvement correlates with decreasing amylase and lipase levels -Fasting lipid levels reviewed and at goal -For lap cr tomorrow -Advanced diet to GI soft and then NPO at midnight for planned Sx in AM (2) Chest pain Current Visit: Yes Status: Acute Code(s): R07.9 - CHEST PAIN, UNSPECIFIED SNOMED Code(s): 82002325 Comment: -Reproducible, likely musculoskeletal -CP only with movement(not necessarily exertion) and on palpation -Obtain 2 more draws of troponins to r/o ACS (3) Abdominal pain Current Visit: No Status: Acute Priority: High Onset Date: 08/24/14 Code (s): R10.9 - UNSPECIFIED ABDOMINAL PAIN SNOMED Code(s): 84198089 Comment: -Well-controlled -Continue current regimen (4) GERD (gastroesophageal reflux disease) Current Visit: No Status: Chronic Code(s): K21.9 - GASTRO-ESOPHAGEAL REFLUX DISEASE WITHOUT ESOPHAGITIS SNOMED Code(s): 121762445 Comment: -Continue pantoprazole (5) Elevated LFTs Current Visit: No Status: Acute Priority: Medium Onset Date: 08/24/14 Code(s): R79.89 - OTHER SPECIFIED ABNORMAL FINDINGS OF BLOOD CHEMISTRY SNOMED Code(s): 618123459 Comment: - AST, ALT and Total bilirubin midly elevated. - In the setting of acute pancreatitis is suggestive of gallstone/biliary pancreatitis (6) Alcohol abuse Current Visit: No Status: Chronic Code(s): F10.10 - ALCOHOL ABUSE, UNCOMPLICATED SNOMED Code(s): 45485664 Comment: - Has abstained from ETOH since January 2018 after 3 episodes of pancreatitis (7) BPH (benign prostatic hypertrophy) Current Visit: No Status: Chronic Code(s): N40.0 - BENIGN PROSTATIC HYPERPLASIA WITHOUT LOWER URINRY TRACT SYMP SNOMED Code(s): 875046967 Comment: -Continue to hold Finasteride and Flomax (8) Gout Current Visit: No Status: Chronic Code(s): M10.9 - GOUT, UNSPECIFIED SNOMED Code(s): 39842771 Comment: - Holinding home allopurinol until tolerating PO (9) DVT prophylaxis Current Visit: No Status: Acute Priority: Medium Onset Date: 08/24/14 Code(s): IPQ5561 - SNOMED Code(s): 907476428 Comment: -Continue Heparin SQq8H Status and Disposition: Patient inpatient for supportive care for pancreatitis as this is his 4th episode. Plan for surg tomorrow D/C home when medically stable.
[2018-07-04] MEDS: Morphine VIAL* 4 MG/ML VIAL (1 ml vial) IV PRN (16:28)
[2018-07-04] MEDS: Tamsulosin CAP* 0.4 MG PO SCH (21:51)
[2018-07-05] MEDS: Heparin VIAL(*) 5000 UNITS/ML VIAL (FIVE THOUSAND) SUBCUT SCH ×3 (04:30→21:40)
[2018-07-05 07:02] LABS: ABS Basophils 0 10^3/ul (0-0.2); ABS Eosinophils 0.1 10^3/ul (0-0.6); ABS Lymphocytes 1.2 10^3/ul (1.0-4.8); ABS Monocytes 0.3 10^3/ul (0-0.8); ABS Neutrophils 1.8 10^3/ul (1.5-7.7); ABS Nucleated RBC 0 10^3/ul; Eosinophil % 4.3 %; Hematocrit 39 % (42-52); Hemoglobin 13.6 g/dl (14.0-18.0); Lymphocyte % 35.1 %; Mean Corpuscular HGB Conc 35 g/dl (31-36); Mean Corpuscular Hemoglobin 34 pg (27-31); Mean Corpuscular Volume 97 fL (80-94); Mean Platelet Volume 8.5 fL (7.4-10.4); Nucleated Red Blood Cells % 0.3; Platelet Count 202 10^3/ul (150-450); Red Blood Count 4.04 10^6/ul (4.00-5.40); Red Cell Distribution Width 13 % (10.5-15); White Blood Count 3.5 10^3/ul (3.5-10.8)
[2018-07-05 07:04] LABS: INR 0.91 (0.77-1.02)
[2018-07-05 07:17] LABS: EGFR Non-African American 91.1 (>60)
[2018-07-05] MEDS: Pantoprazole IV* 40 MG IV SCH (09:06)
[2018-07-05] MEDS ORDERED: fentaNYL* 50 MCG/ML 2 ML VIAL (100 MCG VIAL) ONE ×3 (14:50→17:47)
[2018-07-05] MEDS ORDERED: Midazolam* 1 MG/ML 2 ML VIAL (2 MG) ONE (14:50)
--- NOTE | 2018-07-05 15:01 | PN ---
Subjective Date of Service: 07/05/18 Interval History: Pt seen and examined earlier this AM. Meds and labs reviewed. Clarification from yesterdays note as previously corrected. Pt complained of abd pain and not CP yesterday and did NOT have ACW tenderness. Pt planned for lap cr sometime today. CC: N/A ROS: Denied BRANNON/dizziness, F/C, N/V, CP, SOB, increased cough, sputum production , abd pain, diarrhea, constipation, dysuria, myalgias, arthralgias, throat pain , and new skin lesions. The rest of the 14 point ROS are unremarkable. PHYSICAL EXAM: GEN APPEARANCE: Awake, not in acute distress HEENT: NC/AT, PERRLA, moist oral mucosa, (-) throat erythema NECK: Soft, supple, (-) cervical LAD, (-)JVD HEART: S1S2 WNL, RRR, No MRG CHEST: CTA, BL, GAE, No W/R/R ABD: Soft, ND/NT, NABS 4x Q EXT: No C/C/E SKIN: Warm to touch PSYCH: No active psychosis, hallucinations, depression, SI/HI Objective Active Medications: Heparin Sodium (Porcine) (Heparin Vial(*)) 5,000 units SUBCUT Q8HR [facility] Last Admin: 07/05/18 04:30 Dose: Not Given Morphine Sulfate (Morphine Vial*) 2 mg IV Q4H PRN PRN Reason: PAIN - MILD Last Admin: 07/04/18 16:28 Dose: 2 mg Ondansetron HCl (Zofran Inj*) 4 mg IV Q4H PRN PRN Reason: NAUSEA/VOMITING Pantoprazole Sodium (Protonix Iv*) 40 mg IV Q24H [facility] Last Admin: 07/05/18 09:06 Dose: 40 mg Tamsulosin HCl (Flomax Cap*) 0.4 mg PO BEDTIME [facility] Last Admin: 07/04/18 21:51 Dose: 0.4 mg Vital Signs - 8 hr 07/05/18 07/05/18 07/05/18 07:40 08:00 11:24 Temperature 97.7 F 97.7 F Pulse Rate 61 54 Respiratory 14 16 17 Rate Blood Pressure 125/71 136/76 (mmHg) O2 Sat by Pulse 99 99 Oximetry Oxygen Devices in Use Now: None Result Diagrams: 07/05/18 06:42 07/05/18 06:42 Additional Lab and Data: Laboratory Results - last 24 hr 07/01/18 07/01/18 07/01/18 18:39 18:39 18:40 WBC 9.2 RBC 4.37 Hgb 14.4 Hct 42 MCV 97 H MCH 33 H MCHC 34 RDW 13 Plt Count 224 MPV 8.1 Neut % (Auto) 87.6 Lymph % (Auto) 7.0 Cannon % (Auto) 4.1 Eos % (Auto) 0.8 Baso % (Auto) 0.5 Absolute Neuts (auto) 8.1 H Absolute Lymphs (auto) 0.6 L Absolute Monos (auto) 0.4 Absolute Eos (auto) 0.1 Absolute Basos (auto) 0 Absolute Nucleated RBC 0 Nucleated RBC % 0 APTT 34.4 Sodium 136 Potassium 3.6 Chloride 105 Carbon Dioxide 25 Anion Gap 6 BUN 16 Creatinine 0.83 Est GFR ( Amer) 112.2 Est GFR (Non-Af Amer) 92.7 BUN/Creatinine Ratio 19.3 Glucose 112 H Lactic Acid Calcium 8.8 Total Bilirubin 1.10 H AST 103 H ALT 65 H Alkaline Phosphatase 80 Troponin I 0.00 C-Reactive Protein < 1.00 Total Protein 6.4 Albumin 4.0 Globulin 2.4 Albumin/Globulin Ratio 1.7 Triglycerides Cholesterol LDL Cholesterol HDL Cholesterol Amylase 1312 H Lipase 45618 H Urine Color Urine Appearance Urine pH Ur Specific [place] Urine Protein Urine Ketones Urine Blood Urine Nitrate Urine Bilirubin Urine Urobilinogen Ur Leukocyte Esterase Urine Glucose Urine Ascorbic Acid 07/01/18 07/01/18 07/02/18 18:40 21:51 05:37 WBC 7.1 RBC 4.38 Hgb 14.4 Hct 42 MCV 97 H MCH 33 H MCHC 34 RDW 13 Plt Count 217 MPV 8.1 Neut % (Auto) 77.7 Lymph % (Auto) 15.1 Cannon % (Auto) 6.2 Eos % (Auto) 0.7 Baso % (Auto) 0.3 Absolute Neuts (auto) 5.5 Absolute Lymphs (auto) 1.1 Absolute Monos (auto) 0.4 Absolute Eos (auto) 0 Absolute Basos (auto) 0 Absolute Nucleated RBC 0 Nucleated RBC % 0.1 APTT Sodium Potassium Chloride Carbon Dioxide Anion Gap BUN Creatinine Est GFR ( Amer) Est GFR (Non-Af Amer) BUN/Creatinine Ratio Glucose Lactic Acid 0.8 Calcium Total Bilirubin AST ALT Alkaline Phosphatase Troponin I C-Reactive Protein Total Protein Albumin Globulin Albumin/Globulin Ratio Triglycerides Cholesterol LDL Cholesterol HDL Cholesterol Amylase Lipase Urine Color Yellow Urine Appearance Cloudy Urine pH 6.0 Ur Specific [place] 1.014 Urine Protein Negative Urine Ketones Negative Urine Blood Negative Urine Nitrate Negative Urine Bilirubin Negative Urine Urobilinogen Negative Ur Leukocyte Esterase Negative Urine Glucose Negative Urine Ascorbic Acid * A 07/02/18 05:37 WBC RBC Hgb Hct MCV MCH MCHC RDW Plt Count MPV Neut % (Auto) Lymph % (Auto) Cannon % (Auto) Eos % (Auto) Baso % (Auto) Absolute Neuts (auto) Absolute Lymphs (auto) Absolute Monos (auto) Absolute Eos (auto) Absolute Basos (auto) Absolute Nucleated RBC Nucleated RBC % APTT Sodium 136 Potassium 3.9 Chloride 106 Carbon Dioxide 24 Anion Gap 6 BUN 13 Creatinine 0.87 Est GFR ( Amer) 105.9 Est GFR (Non-Af Amer) 87.5 BUN/Creatinine Ratio 14.9 Glucose 111 H Lactic Acid Calcium 8.5 L Total Bilirubin 1.40 H AST 92 H ALT 115 H Alkaline Phosphatase 91 Troponin I C-Reactive Protein Total Protein 6.1 L Albumin 3.8 Globulin 2.3 Albumin/Globulin Ratio 1.7 Triglycerides 46 Cholesterol 136 LDL Cholesterol 73 HDL Cholesterol 53.7 Amylase 743 H Lipase 2576 H Urine Color Urine Appearance Urine pH Ur Specific [place] Urine Protein Urine Ketones Urine Blood Urine Nitrate Urine Bilirubin Urine Urobilinogen Ur Leukocyte Esterase Urine Glucose Urine Ascorbic Acid Microbiology and Other Data: . Diagnostic Imaging: EXAM DATE/TIME: 07/01/2018 11:08 PM CLINICAL HISTORY: 67 years old, male; Pain; Abdominal pain; Epigastric; Patient HX: HX: 3 episodes of pancreatitis. Epigastric pain. ; Additional info: Pancreatitis, elevated lipase TECHNIQUE: Real-time ultrasound of the abdomen with image documentation. Examination was focused on the right upper quadrant. COMPARISON: GB US GALL BLADDER 03/04/2018 7:32 AM FINDINGS: Liver: Normal liver echogenicity and size with no focal lesions. Normal hepatopetal portal vein flow. Gallbladder: Single gallstone within the gallbladder neck. No gallbladder wall thickening, pericholecystic fluid, or sonographic Sunshine sign. Common bile duct: CBD measures 0.4 cm. Pancreas: Visualized pancreas is unremarkable. Right kidney: Right kidney measures 11.3 x 6.0 x 5.2 cm (184 cc). No solid cortical lesions, calculi, or pelvocaliectasis. Aorta: Mildly atherosclerotic normal caliber aorta measuring 1.5 cm proximally. IMPRESSION: Cholelithiasis without cholecystitis. No additional findings to correlate with patient's symptomatology. EXAM DATE/TIME: 07/01/2018 8:28 PM CLINICAL HISTORY: 67 years old, male; Pain; Abdominal pain; Epigastric; Additional info: Epigastric pain TECHNIQUE: Axial computed tomography images of the abdomen and pelvis with intravenous contrast. All CT scans at this facility use at least one of these dose optimization techniques: automated exposure control; mA and/or kV adjustment per patient size (includes targeted exams where dose is matched to clinical indication); or iterative reconstruction. Coronal and sagittal reformatted images were created and reviewed. CONTRAST: 117 ml of OMNIPAQUE 300 administered intravenously. COMPARISON: A/P W CT ABD/PEL W 03/02/2018 6:24 PM A/P W CT ABD/PEL W 08/24/2014 5:47:49 PM FINDINGS: Lower thorax: The visualized portions of the lung bases are normal. ABDOMEN: Liver: Normal. No mass. Gallbladder and bile ducts: Distended gallbladder with no radiopaque calculi, abnormal thickening, or pericholecystic fluid. Pancreas: Diffuse peripancreatic and intrapancreatic edema extending into the lesser sac, along the mesenteric root, and along the bilateral anterior pararenal fascia. Normal pancreatic parenchymal enhancement with no main ductal dilation or focal lesions. No peripancreatic encapsulated fluid collections. Spleen: Normal. No splenomegaly. Adrenals: Normal. No mass. Kidneys and ureters: Low attenuating renal lesion left mid pole measures 1.6 cm and does not measures simple fluid. No calculi or pelvocaliectasis. Stomach and bowel: Incompletely distended grossly normal stomach. Normal caliber small bowel. Numerous colonic diverticula without adjacent inflammatory changes or associated wall thickening. Appendix: Normal caliber appendix without wall thickening or adjacent inflammation. PELVIS: Bladder: Mildly thick walled urinary bladder. No perivesicular stranding or calcifications. Reproductive: Moderate prostate enlargement. Normal seminal vesicles. EKG Data: . Assess/Plan/Problems-Billing Assessment: 68 yr old male with hx of prancreatitis, GERD, Gout, and Enlarged prostate; who presented to the ED with suddon onset epigastric pain. Found to have pancreatitis as evidence by markedly elevated Amylase and Lipase, pancreatic edema. Pancreatitis suspected to be secondary to gallstones as ultrasound revealed cholithiasis without choleysitits. Patient NPO and receiving IVF. - Patient Problems (1) Gallstone pancreatitis Current Visit: Yes Status: Acute Code(s): K85.10 - BILIARY ACUTE PANCREATITIS WITHOUT NECROSIS OR INFECTION SNOMED Code(s): 98802387 Comment: -Clinical improvement correlates with decreasing amylase and lipase levels; mildly elevate LFTs suggestive of either small stones intermittently passing and /or stones intermittently obstructing cystic duct as GB contracts -Fasting lipid levels reviewed and at goal -For lap cr sometime todaydefer with Sx team (2) Chest pain Current Visit: Yes Status: Acute Code(s): R07.9 - CHEST PAIN, UNSPECIFIED SNOMED Code(s): 16715894 Comment: -Reproducible, likely musculoskeletal -CP only with movement(not necessarily exertion) and on palpation -Obtain 2 more draws of troponins to r/o ACS (3) Abdominal pain Current Visit: No Status: Acute Priority: High Onset Date: 08/24/14 Code (s): R10.9 - UNSPECIFIED ABDOMINAL PAIN SNOMED Code(s): 13126909 Comment: -Well-controlled -Continue current regimen (4) GERD (gastroesophageal reflux disease) Current Visit: No Status: Chronic Code(s): K21.9 - GASTRO-ESOPHAGEAL REFLUX DISEASE WITHOUT ESOPHAGITIS SNOMED Code(s): 230940796 Comment: -Continue pantoprazole (5) Elevated LFTs Current Visit: No Status: Acute Priority: Medium Onset Date: 08/24/14 Code(s): R79.89 - OTHER SPECIFIED ABNORMAL FINDINGS OF BLOOD CHEMISTRY SNOMED Code(s): 635635207 Comment: - AST, ALT and Total bilirubin midly elevated. - In the setting of acute pancreatitis is suggestive of gallstone/biliary pancreatitis (6) Alcohol abuse Current Visit: No Status: Chronic Code(s): F10.10 - ALCOHOL ABUSE, UNCOMPLICATED SNOMED Code(s): 26674564 Comment: - Has abstained from ETOH since January 2018 after 3 episodes of pancreatitis (7) BPH (benign prostatic hypertrophy) Current Visit: No Status: Chronic Code(s): N40.0 - BENIGN PROSTATIC HYPERPLASIA WITHOUT LOWER URINRY TRACT SYMP SNOMED Code(s): 024122919 Comment: -Continue to hold Finasteride and Flomax (8) Gout Current Visit: No Status: Chronic Code(s): M10.9 - GOUT, UNSPECIFIED SNOMED Code(s): 04349382 Comment: - Holinding home allopurinol until tolerating PO (9) DVT prophylaxis Current Visit: No Status: Acute Priority: Medium Onset Date: 08/24/14 Code(s): REP0132 - SNOMED Code(s): 642082534 Comment: -Continue Heparin SQq8H Status and Disposition: Patient inpatient for supportive care for pancreatitis as this is his 4th episode. Plan for surg sometime today. D/C home when medically stable.
[2018-07-05] MEDS ORDERED: ceFAZolin 2 GM PREMIX in ORs 2 GM/50 ML BAG IVPB ONE (15:48)
[2018-07-05] MEDS ORDERED: Dexamethasone IV* 4 MG/ML 1 ML (4 MG) ONE (16:06)
[2018-07-05] MEDS ORDERED: Ondansetron INJ* 2 MG/ML VIAL ONE (16:06)
[2018-07-05] MEDS ORDERED: Propofol* 10 MG/ML 20 ML BTL ONE ×2 (16:06→16:13)
[2018-07-05] MEDS ORDERED: Cisatracurium* 2 MG/ML MDV 5 ML ONE (16:07)
[2018-07-05] MEDS ORDERED: Naloxone* 0.4 MG/ML 1 ML VIAL IV PRN (16:26)
[2018-07-05] MEDS ORDERED: DiMENhydriNATE IV* 50 MG/ML VIAL IV PUSH PRN (16:26)
[2018-07-05] MEDS ORDERED: PROCHLORPERAZINE INJ 5 MG/ML 2 ML VIAL IV PRN (16:26)
[2018-07-05] MEDS ORDERED: Levalbuterol 0.63MG/3ML NEB* UNIT OF USE INH PRN (16:26)
[2018-07-05] MEDS ORDERED: Acetaminophen TAB* 325 MG PO PRN ×2 (16:26→20:43)
[2018-07-05] MEDS ORDERED: diPHENhydraMINE IV* 50 MG/ML 1 ml VIAL (BENADRYL) IV PRN (16:26)
[2018-07-05] MEDS ORDERED: EPHEDrine (Pressors)* 50 MG/ML VIAL ONE (16:27)
--- NOTE | 2018-07-05 17:32 | BRIEFOPN ---
Brief Operative Note - Surgery Procedures: Brief Operative Note Preop Dx: Gallstone Pancreatitis Postop Dx: same Procedure: Laparoscopic Cholecystectomy Anesthesia: MARIA ALEJANDRA Surgeon: Essence Manager Advertising: MODESTO Robles PA-S Fluids: 1500 ml EBL: <15 cc Specimen: Gallbladder Drains: none Findings: dictated
[2018-07-05] MEDS: fentaNYL* 50 MCG/ML 2 ML VIAL (100 MCG VIAL) IV PRN ×2 (17:49→18:09)
[2018-07-05] MEDS ORDERED: Morphine VIAL* 4 MG/ML VIAL (1 ml vial) IV PRN ×2 (20:42)
[2018-07-05] MEDS ORDERED: oxyCODONE/Acetamin 5/325 MG* TAB PO PRN ×2 (20:44)
[2018-07-05] MEDS: Tamsulosin CAP* 0.4 MG PO SCH (21:39)
[2018-07-06] MEDS: Heparin VIAL(*) 5000 UNITS/ML VIAL (FIVE THOUSAND) SUBCUT SCH (04:01)
[2018-07-06 06:39] LABS: ABS Basophils 0 10^3/ul (0-0.2); ABS Eosinophils 0 10^3/ul (0-0.6); ABS Lymphocytes 0.9 10^3/ul (1.0-4.8); ABS Monocytes 0.4 10^3/ul (0-0.8); ABS Neutrophils 4.6 10^3/ul (1.5-7.7); ABS Nucleated RBC 0 10^3/ul; Eosinophil % 0.1 %; Hematocrit 41 % (42-52); Hemoglobin 13.8 g/dl (14.0-18.0); Lymphocyte % 15.5 %; Mean Corpuscular HGB Conc 34 g/dl (31-36); Mean Corpuscular Hemoglobin 33 pg (27-31); Mean Corpuscular Volume 97 fL (80-94); Mean Platelet Volume 8.7 fL (7.4-10.4); Nucleated Red Blood Cells % 0; Platelet Count 209 10^3/ul (150-450); Red Blood Count 4.18 10^6/ul (4.00-5.40); Red Cell Distribution Width 13 % (10.5-15)
[2018-07-06 06:53] LABS: EGFR Non-African American 96.4 (>60)
[2018-07-06 07:30] VITALS: BP 142/74
--- NOTE | 2018-07-06 10:16 | PN ---
Progress Note - Progress Note Date of Service: 07/06/18 Note: S: POD #1. Some pain this a.m., relieved by Percocet. Cm breakfast well. O: Vital Signs - 8 hr 07/06/18 07/06/18 07/06/18 04:53 07:15 07:42 Temperature 98.0 F 97.9 F Pulse Rate 64 64 Respiratory 16 18 16 Rate Blood Pressure 143/71 142/74 (mmHg) O2 Sat by Pulse 97 97 Oximetry Intake and Output Last 24 Hours 07/04/18 07/05/18 07/06/18 07/07/18 06:59 06:59 06:59 06:59 Intake Total 1520 2750 1830 Output Total 3 275 Balance 1517 2750 1555 Intake: IV Fluids 1730 LR 730 lr 1000 Oral 1520 2750 100 Output: Urine 3 275 Other: Estimated Void Medium # Bowel Movements 0 0 0 # Voids 0 0 Gen: appears comfortable, sitting up drinking coffee Heart: reg Lungs: clear ant Abd: lap sites clean, dry; +BS; soft; mild to mod incisional tenderness Labs: Laboratory Tests 07/06/18 07/06/18 05:45 05:45 WBC 6.0 Hgb 13.8 L Total Bilirubin 0.50 AST 38 ALT 88 H Alkaline Phosphatase 99 Lipase 158 H A: s/p lap cr for GS pancreatitis, doing well P: home today; discussed w/ hospitalist; instructions reviewed
--- NOTE | 2018-07-06 15:28 | OP ---
DATE OF OPERATION: 07/05/18 - ROOM #410 DATE OF : 52 SURGEON: Navi Lowry MD INDEX CLERK: SAMIA Senior ANESTHESIOLOGIST: Dr. Sanchez. ANESTHESIA: General with local. PRE-OP DIAGNOSIS: Gallstone pancreatitis. POST-OP DIAGNOSIS: Gallstone pancreatitis. OPERATIVE PROCEDURE: Laparoscopic cholecystectomy. ESTIMATED BLOOD LOSS: Minimal. WOUND CLASSIFICATION: II. COMPLICATIONS: None. DRAINS: None. SPECIMENS: Gallbladder. BRIEF HISTORY: Mr. Juan A To is a 68-year-old gentleman who was admitted several days ago with pancreatitis after he developed epigastric abdominal pain. He has had several episodes of pancreatitis, but on this visit, an ultrasound for the first time showed gallstones. Clinically, he is not much improved and he has slight elevation in his liver transaminases and bilirubin, they are returning to normal and his abdominal pain is resolving and he is now to undergo a laparoscopic cholecystectomy for cholelithiasis. The procedure was discussed with the patient and the risks of, but not limited to, bleeding, infection, intraabdominal abscess formation, injury to peritoneal and retroperitoneal structures, possibility of common bile duct injury requiring further reconstruction, bile leak, abscess, possibility of an open procedure, and the risk of general anesthesia, and deep vein thrombosis were all explained. DESCRIPTION OF PROCEDURE: Written informed consent was obtained, the abdomen was marked with indelible ink and preoperative antibiotics were administered. The patient was taken to the operating room and placed in the supine position. Sequential compression devices and a warming blanket were applied. The abdomen was prepped and draped in the usual sterile fashion. Time-out verification was completed. Initially, a small transverse incision was made just above the umbilicus at the midline and the peritoneal cavity was entered under direct vision. A 12-mm blunt port was inserted and the abdomen was insufflated to 15 mmHg. Under direct vision, an 11-mm epigastric port was placed and two 5-mm ports were placed in the right side of the abdominal wall. The liver was identified. It was somewhat larger, but it was smooth and without evidence of cirrhosis or nodularity. The medial segment of the left lobe was somewhat protuberant and we did have to position the patient somewhat more to his left to visualize the gallbladder. The gallbladder was identified. It was thin walled and bluish in color, slightly distended, but easily grasped. The gallbladder was elevated over the liver bed, and with care the peritoneum along the infundibulum at the base of the gallbladder was divided medially and laterally to expose the underlying cystic duct and arteries and I entered the gallbladder. I took a significant portion of the inferior part of the gallbladder off the liver bed using the critical-view technique to assure myself of these structures. Cystic duct did not appear to be dilated and it was triply clipped and divided. The cystic artery was also clipped and divided as well. Gallbladder was then removed from the liver bed using cautery and placed in an EndoCatch bag and brought out through the umbilical incision. The liver bed was evaluated. Hemostasis was assured. All ports were removed under direct vision of the camera. The umbilical fascia was closed with interrupted 0 Vicryl suture. The skin at all four incisions was approximated with subcuticular 4-0 Vicryl suture. Steri-Strips were applied. The patient tolerated the procedure well and was taken to the recovery room in stable condition. [id number]/[facility] #: [id number] LEN
--- NOTE | 2018-07-06 21:27 | DS ---
CC: Dr. eTrry Rascon * DISCHARGE SUMMARY: DATE OF ADMISSION: 07/01/18 DATE OF DISCHARGE: 07/06/18 ATTENDING SURGEON: Dr. Navi Lowry.* (DICTATED BY SAMIA SONG) HOSPITAL COURSE: Please refer to admission history and physical and operative note for details. Briefly, the patient was admitted on 07/01/18 with evidence of pancreatitis and ultrasound did show a single gallstone without evidence of cholecystitis. His common bile duct was normal in size at 0.4 cm. His labs and clinical condition improved over the next few days and he was subsequently taken to the operating room on 07/05/18 at which time he underwent laparoscopic cholecystectomy with Dr. Lowry. He has had an uneventful postoperative course and as of the morning of discharge is tolerating diet well. Pain was well controlled and vital signs were stable. PHYSICAL EXAMINATION: As of the morning of the discharge, temperature 97.9, blood pressure 142/74, pulse 64, respirations 18, room air saturation 97%. Physical exam is notable for laparoscopic incision sites being clean and dry and with mild-to- moderate incisional tenderness only. Bowel sounds are active and he is tolerating diet well. LABORATORY DATA: Labs on the morning of discharge include AST of 38 down from yesterday of 87, ALT of 88 down from 127, alkaline phosphatase 99 down from 107 , lipase 158 down from 41 and peak of 10,737. IMPRESSION: Gallstone pancreatitis, now status post laparoscopic cholecystectomy, doing well. PLAN: Home today. Instructions regarding wound care. Diet and activity were reviewed. He has a followup appointment in our office on 07/13/18. No additional prescriptions were given (he does have prescription for hydrocodone at home, which he will use p.r.n. for stronger pain). SAMIA SONG [id number]/[facility] #: [id number] MTDJese
== END 2018-07-06 12:25 | disposition home or self-care (01) | DRG 418 ==
LOC: ED 17:50 → MED 22:00
PROVIDERS: ADMIT Hospitalist; ATTEND Surgery
PROC: 0FT44ZZ Resection of Gallbladder, Percutaneous Endoscopic Approach (ICD-10-PCS; principal; 2018-07-05 11:30)
DX: K85.10 Biliary acute pancreatitis without necrosis or infection (principal); K80.10 Calculus of gallbladder with chronic cholecystitis without obstruction; K21.9 Gastro-esophageal reflux disease without esophagitis; M10.9 Gout, unspecified; N40.0 Benign prostatic hyperplasia without lower urinary tract symptoms; R07.89 Other chest pain; F10.11 Alcohol abuse, in remission; R94.5 Abnormal results of liver function studies; Z79.1 Long term (current) use of non-steroidal anti-inflammatories (NSAID); Z79.899 Other long term (current) drug therapy; Z82.49 Family history of ischemic heart disease and other diseases of the circulatory system; Z83.3 Family history of diabetes mellitus; Z80.0 Family history of malignant neoplasm of digestive organs
CPT/HCPCS: 36415; 74177; 76705; 80053; 80061; 81003; 82150; 83605; 83690; 83735; 84100; 84484; 85025; 85610; 85730; 86140; 87040; 88304; 93005; 99284; A9270-GY; J0690; J1100; J1644; J2250; J2270; J2405; J2704; J3010; Q9967